=== PATIENT | female | born 1940 | race Caucasian/White ===

== ENCOUNTER 2017-03-26 12:25 | Emergency (ER) | payer MEDICARE, BC ==
[2017-03-26 13:02] VITALS: BP 148/73
--- NOTE | 2017-03-26 13:31 | EDM.PDOC ---
ED HPI GENERAL MEDICAL PROBLEM - General Chief Complaint: Respiratory Problem Stated Complaint: SHORT OF BREATH, PAIN Time Seen by Provider: 03/26/17 13:15 Source of Information: Reports: Patient, Old Records History Limitations: Reports: No Limitations - History of Present Illness INITIAL COMMENTS - FREE TEXT/NARRATIVE: 76 yo female presents from home with SOB. Is diabetic and BS was just over 300 before coming in. No recent cough, fever, or CP. Has had similar episodes of SOB in the past, but not this severe. Now that she is here she is completely back to normal. No recent unilateral calf pain or swelling. Onset: Today Onset Date: 03/26/17 Duration: Minutes:, Resolved Prior to Arrival (Resolved upon arrival) Location: Reports: Generalized Quality: Reports: Other (no pain) Severity: Moderate Improves with: Reports: Other (time) Worsens with: Reports: Other (unknown) Context: Reports: Other (past hx of anxiety) Associated Symptoms: Reports: No Other Symptoms Treatments TREE CUTTER: Reports: Other (see below) (none) Chest Pain Score (Numeric/FACES): 5 - Related Data Allergies Allergy/AdvReac Type Severity Reaction Status Date / Time celecoxib [From Celebrex] Allergy Rash Verified 03/26/17 12:50 metformin HCl Allergy Cannot Verified 03/26/17 12:50 [From Glucophage] Remember paroxetine Allergy Cannot Verified 03/26/17 12:50 Remember prednisone Allergy Cannot Verified 03/26/17 12:50 Remember rofecoxib [From Vioxx] Allergy Rash Verified 03/26/17 12:50 Sulfa (Sulfonamide Allergy Cannot Verified 03/26/17 12:50 Antibiotics) Remember sulfasalazine Allergy Cannot Verified 03/26/17 12:50 [From Azulfidine] Remember codeine AdvReac Itching Verified 03/26/17 12:50 cyclobenzaprine AdvReac Itching Verified 03/26/17 12:50 environmental Allergy Cannot Uncoded 03/26/17 12:50 Remember Home Meds: Home Meds Furosemide [Lasix] 20 mg PO DAILY 08/22/13 [History] Gabapentin [Neurontin] 900 mg PO TID 08/22/13 [History] Multivitamin with Minerals [Multiple Vitamin] 1 tab PO DAILY 08/22/13 [History] Ursodiol [Actigal] 300 mg PO BID 08/22/13 [History] FLUoxetine HCl [Prozac] 60 mg PO DAILY 03/09/14 [History] Insulin Aspart Protam & Aspart [Novolog Mix 70-30 Flexpen Syrn] 23 unit SQ BEDTIME 09/15/15 [History] Insuln Asp Prot/Insulin Aspart [NovoLOG Mix 70-30] 35 unit SQ ACBRK 09/15/15 [ History] Loratadine 10 mg PO DAILY 03/30/16 [History] Memantine HCl [Namenda] 10 mg PO BEDTIME 03/30/16 [History] Pramipexole [Mirapex] 0.5 mg PO BEDTIME 03/30/16 [History] Ranitidine [Zantac] 150 mg PO BID 03/30/16 [History] Rivastigmine [Exelon] 3 mg PO BID 04/27/16 [History] Metoprolol Tartrate [Lopressor] 25 mg PO BID 03/26/17 [History] Ondansetron [Ondansetron ODT] 4 mg SL ASDIRECTED 03/26/17 [History] Warfarin [Coumadin] 2.5 mg PO ASDIRECTED 03/26/17 [History] Warfarin [Coumadin] 5 mg PO ASDIRECTED 03/26/17 [History] atorvaSTATin [Lipitor] 40 mg PO DAILY 03/26/17 [History] Past Medical History HEENT History: Reports: Cataract, Impaired Vision Cardiovascular History: Reports: High Cholesterol, Hypertension, Other (See Below) Other Cardiovascular History: bradycardia Respiratory History: Reports: Sleep Apnea Gastrointestinal History: Reports: Bowel Obstruction, Colon Polyp, Diverticulosis, Hemorrhoids Genitourinary History: Reports: UTI, Recurrent Other OB/BYN History: removal of one ovary and fallopian tube Musculoskeletal History: Reports: Arthritis, Back Pain, Chronic, Fracture, Fibromyalgia, Osteoporosis Neurological History: Reports: Concussion, Neuropathy, Diabetic, TIA, Other ( See Below) Other Neuro History: dementia Psychiatric History: Reports: Anxiety, Dementia, Depression Endocrine/Metabolic History: Reports: Diabetes, Type II, Osteoporosis Hematologic History: Reports: Anemia, Anticoagulation Therapy Dermatologic History: Reports: Psoriasis - Infectious Disease History Infectious Disease History: Reports: Chicken Pox, Measles, Mumps Other Infectious Disease History: unknown - Past Surgical History HEENT Surgical History: Reports: Cataract Surgery Cardiovascular Surgical History: Reports: Pacer GI Surgical History: Reports: Appendectomy, Cholecystectomy, Hernia Repair/Other , Other (See Below) Musculoskeletal Surgical History: Reports: Knee Replacement, Other (See Below) Social & Family History - Tobacco Use Smoking Status *Q: Never Smoker Second Hand Smoke Exposure: No - Caffeine Use Caffeine Use: Reports: Coffee Other Caffeine Use: unknown - Alcohol Use Days Per Week of Alcohol Use: 0 - Recreational Drug Use Recreational Drug Use: No ED ROS GENERAL - Review of Systems Review Of Systems: See Below Constitutional: Reports: No Symptoms HEENT: Reports: No Symptoms Respiratory: Reports: Shortness of Breath Cardiovascular: Reports: No Symptoms Endocrine: Reports: No Symptoms GI/Abdominal: Reports: No Symptoms : Reports: No Symptoms Musculoskeletal: Reports: No Symptoms Skin: Reports: No Symptoms Neurological: Reports: No Symptoms Psychiatric: Reports: Anxiety ED EXAM, GENERAL - Physical Exam Exam: See Below Exam Limited By: No Limitations General Appearance: Alert, WD/WN, No Apparent Distress Eye Exam: Bilateral Eye: Normal Inspection Ears: Normal External Exam, Normal Canal, Hearing Grossly Normal, Normal TMs Ear Exam: Bilateral Ear: Auricle Normal, Canal Normal, TM normal Nose: Normal Inspection, Normal Mucosa, No Blood Throat/Mouth: Normal Inspection, Normal Lips, Normal Oropharynx, Normal Voice, No Airway Compromise Head: Atraumatic, Normocephalic Neck: Normal Inspection, Supple, Non-Tender Respiratory/Chest: No Respiratory Distress, Lungs Clear, Normal Breath Sounds, No Accessory Muscle Use Cardiovascular: Regular Rate, Rhythm, No Edema GI/Abdominal: Normal Bowel Sounds, Soft, Non-Tender, No Distention Back Exam: Normal Inspection Extremities: Normal Inspection, Normal Range of Motion, Non-Tender, No Pedal Edema Neurological: Alert, Oriented, CN II-XII Intact, Normal Cognition, Normal Reflexes, No Motor/Sensory Deficits Psychiatric: Normal Affect, Normal Mood Skin Exam: Warm, Dry, Intact, Normal Color, No Rash Lymphatic: No Adenopathy Course - Vital Signs Text/Narrative:: AccuCheck-250 Last Recorded V/S: Last Vital Signs Temp 36.6 C 03/26/17 12:52 Pulse 60 03/26/17 13:01 Resp 21 H 03/26/17 13:01 BP 148/73 H 03/26/17 13:01 Pulse Ox 95 03/26/17 13:01 - Orders/Labs/Meds Orders: Active Orders 24 hr Category Date Time Status POC Glucose [Blood Glucose Check, Bedside] [RC] ONETIME Care 03/26/17 13:25 Inactive Departure - Departure Time of Disposition: 14:08 Disposition: Home, Self-Care 01 Condition: good Clinical Impression: Anxiety - Discharge Information Forms: ED Department Discharge - My Orders Last 24 Hours: My Active Orders 03/26/17 13:25 POC Glucose [Blood Glucose Check, Bedside] [RC] ONETIME - Assessment/Plan Last 24 Hours: My Active Orders 03/26/17 13:25 POC Glucose [Blood Glucose Check, Bedside] [RC] ONETIME
== END 2017-03-26 14:32 | disposition home or self-care (01) ==
LOC: JP.ED 12:25
DX: F41.9 Anxiety disorder, unspecified (principal); I10 Essential (primary) hypertension; E78.00 Pure hypercholesterolemia, unspecified; E11.40 Type 2 diabetes mellitus with diabetic neuropathy, unspecified; F03.90 Unspecified dementia, unspecified severity, without behavioral disturbance, psychotic disturbance, mood disturbance, and anxiety; F32.9 Major depressive disorder, single episode, unspecified; Z86.73 Personal history of transient ischemic attack (TIA), and cerebral infarction without residual deficits; Z98.49 Cataract extraction status, unspecified eye; Z95.0 Presence of cardiac pacemaker; Z90.49 Acquired absence of other specified parts of digestive tract; Z96.659 Presence of unspecified artificial knee joint; Z98.890 Other specified postprocedural states; Z79.4 Long term (current) use of insulin; Z79.899 Other long term (current) drug therapy; Z88.2 Allergy status to sulfonamides; Z88.5 Allergy status to narcotic agent; Z88.8 Allergy status to other drugs, medicaments and biological substances; Z91.048 Other nonmedicinal substance allergy status
CPT/HCPCS: 82962; 99282; 99285

== ENCOUNTER 2017-10-19 09:37 | Observation (INO) | payer MEDICARE, BC ==
[2017-10-19] MEDS ORDERED: Ondansetron 4 MG/2 ML SDV ONE (09:58)
[2017-10-19] MEDS ORDERED: Propofol 200 MG/20 ML SDV ONE (10:01)
[2017-10-19] MEDS ORDERED: Succinylcholine 200 MG/10 ML MDV ONE (10:01)
--- NOTE | 2017-10-19 10:07 | CT ---
Max Facial Sinus wo Cont Total DLP 379 mGycm. INDICATION: fall, trauma COMPARISON: None. FINDINGS: Hematoma within the scalp overlying the midline left frontal bone. No acute facial fracture . Temporomandibular joints are normally located. No significant paranasal sinus disease. Exam otherwi se negative. IMPRESSION: No acute facial fracture. Soft tissue hematoma.
--- NOTE | 2017-10-19 10:15 | CT ---
Head wo Cont INDICATION: fall, trauma Total DLP 1071. COMPARISON: None. FINDINGS: No acute intracranial hemorrhage, mass, or edema. Generalized cerebral and cerebellar volum e loss. Patchy low attenuation in the periventricular and subcortical deep white matter is nonspecifi c, but most compatible with chronic small-vessel ischemic changes. Chronic encephalomalacia parasagit aneudy right occipital lobe. Chronic lacunar infarcts bilateral basal ganglia. Remainder unremarkable. IMPRESSION: No acute intracranial abnormality.
--- NOTE | 2017-10-19 10:17 | CT ---
Cervical Spine wo Cont Total DLP 1071. INDICATION: fall, trauma COMPARISON: None FINDINGS: No acute fracture or malalignment. Multilevel degenerative changes including degenerative d isc disease and uncovertebral and facet hypertrophy with associated neural foraminal narrowing. Soft tissues are negative. Remainder unremarkable. IMPRESSION: No acute fracture or malalignment.
[2017-10-19] MEDS ORDERED: Ondansetron 4 MG/2 ML SDV IVPUSH ONE (10:20)
--- NOTE | 2017-10-19 10:29 | EDM.PDOC ---
ED HPI GENERAL MEDICAL PROBLEM - General Chief Complaint: Head Injury Stated Complaint: [facility]IA [facility] Time Seen by Provider: 10/19/17 10:19 Source of Information: Reports: Patient, RN Notes Reviewed (Name do) History Limitations: Reports: Altered Mental Status - History of Present Illness INITIAL COMMENTS - FREE TEXT/NARRATIVE: 77-year-old female presents emergency department today via EMS services, [facility] was in both in the field for head injury. Minimal history can be obtained from the patient but she does communicate and answers questions appropriately story from EMs states patient slipped and fell today at home landing on the corner of a concrete fireplace hitting the right side of her head , she is actively vomiting upon arrival Headache Pain Score (Numeric/FACES): 5 - Related Data Allergies Allergy/AdvReac Type Severity Reaction Status Date / Time celecoxib [From Celebrex] Allergy Rash Verified 10/19/17 10:30 metformin HCl Allergy Cannot Verified 10/19/17 10:30 [From Glucophage] Remember paroxetine Allergy Cannot Verified 10/19/17 10:30 Remember prednisone Allergy Cannot Verified 10/19/17 10:30 Remember rofecoxib [From Vioxx] Allergy Rash Verified 10/19/17 10:30 Sulfa (Sulfonamide Allergy Cannot Verified 10/19/17 10:30 Antibiotics) Remember sulfasalazine Allergy Cannot Verified 10/19/17 10:30 [From Azulfidine] Remember codeine AdvReac Itching Verified 10/19/17 10:30 cyclobenzaprine AdvReac Itching Verified 10/19/17 10:30 environmental Allergy Cannot Uncoded 10/19/17 10:30 Remember Home Meds: Home Meds Furosemide [Lasix] 20 mg PO DAILY 08/22/13 [History] Gabapentin [Neurontin] 900 mg PO TID 08/22/13 [History] Multivitamin with Minerals [Multiple Vitamin] 1 tab PO DAILY 08/22/13 [History] Ursodiol [Actigal] 300 mg PO BID 08/22/13 [History] FLUoxetine HCl [Prozac] 60 mg PO DAILY 03/09/14 [History] Insulin Aspart Protam & Aspart [Novolog Mix 70-30 Flexpen Syrn] 23 unit SQ BEDTIME 09/15/15 [History] Insuln Asp Prot/Insulin Aspart [NovoLOG Mix 70-30] 35 unit SQ ACBRK 09/15/15 [ History] Loratadine 10 mg PO DAILY 03/30/16 [History] Memantine HCl [Namenda] 10 mg PO BEDTIME 03/30/16 [History] Pramipexole [Mirapex] 0.5 mg PO BEDTIME 03/30/16 [History] Ranitidine [Zantac] 150 mg PO BID 03/30/16 [History] Rivastigmine [Exelon] 3 mg PO BID 04/27/16 [History] Metoprolol Tartrate [Lopressor] 25 mg PO BID 03/26/17 [History] Ondansetron [Ondansetron ODT] 4 mg SL ASDIRECTED 03/26/17 [History] Warfarin [Coumadin] 2.5 mg PO ASDIRECTED 03/26/17 [History] Warfarin [Coumadin] 5 mg PO ASDIRECTED 03/26/17 [History] atorvaSTATin [Lipitor] 40 mg PO DAILY 03/26/17 [History] Past Medical History HEENT History: Reports: Cataract, Impaired Vision Cardiovascular History: Reports: High Cholesterol, Hypertension, Other (See Below) Other Cardiovascular History: bradycardia Respiratory History: Reports: Sleep Apnea Gastrointestinal History: Reports: Bowel Obstruction, Colon Polyp, Diverticulosis, Hemorrhoids Genitourinary History: Reports: UTI, Recurrent Other OB/BYN History: removal of one ovary and fallopian tube Musculoskeletal History: Reports: Arthritis, Back Pain, Chronic, Fracture, Fibromyalgia, Osteoporosis Neurological History: Reports: Concussion, Neuropathy, Diabetic, TIA, Other ( See Below) Other Neuro History: dementia Psychiatric History: Reports: Anxiety, Dementia, Depression Endocrine/Metabolic History: Reports: Diabetes, Type II, Osteoporosis Hematologic History: Reports: Anemia, Anticoagulation Therapy Dermatologic History: Reports: Psoriasis - Infectious Disease History Infectious Disease History: Reports: Other (See Below) Other Infectious Disease History: unknown - Past Surgical History HEENT Surgical History: Reports: Cataract Surgery Cardiovascular Surgical History: Reports: Pacer GI Surgical History: Reports: Appendectomy, Cholecystectomy, Hernia Repair/Other , Other (See Below) Musculoskeletal Surgical History: Reports: Knee Replacement, Other (See Below) Social & Family History - Tobacco Use Smoking Status *Q: Never Smoker Second Hand Smoke Exposure: No - Caffeine Use Caffeine Use: Reports: Coffee Other Caffeine Use: unknown - Alcohol Use Days Per Week of Alcohol Use: 0 - Recreational Drug Use Recreational Drug Use: No ED ROS GENERAL - Review of Systems Review Of Systems: Unable To Obtain ED EXAM, HEAD INJURY - Physical Exam Exam: See Below Text/Narrative:: Primary survey GCS of 14, airways open patent clear lungs are clear to auscultation bilaterally and cardiovascular demonstrates regular rate and rhythm S1-S2 Secondary survey General: Elderly female actively vomiting, GCS of 14, mild distress HEENT: head is large hematomas appreciated over the left eye with closure smaller hematomas over the right eye normocephalic, eyes pupils equal round reactive to light on the right, sclera clear no conjunctivitis appreciated on the right. Ears tympanic membranes clear and pend[place] landmarks and light reflex are present bilaterally canals are clear. Nose no septal deviation, nares are clear, no blood present. Mouth mucosa is moist and pink no erythema or exudate noted in soft palate, tongue is midline uvula is midline, dentures in place. Neck: Supple no thyromegaly no tracheal deviation. Nodes: Cervical nodes subclavicular nodes nontender no palpable lymphadenopathy noted. Lungs: clear to auscultation bilaterally with symmetrical respirations, no adventitious noise appreciated. CV: Regular rate and rhythm S1 and S2 appreciated no murmurs rubs or gallops noted. Abdomen: Soft, nontender, no palpable masses or organomegaly appreciated, no distention no guarding bowel sounds are present,. Neuro: Cranial nerves II through XII grossly intact except for examination of the left eye which is closed due to edema Skin: Warm and dry, intact Extremities: No lower extremity edema appreciated, Course - Vital Signs Last Recorded V/S: Last Vital Signs Temp 95.9 F 10/19/17 09:44 Pulse 63 10/19/17 10:56 Resp 11 L 10/19/17 10:56 BP 190/98 H 10/19/17 10:56 Pulse Ox 94 L 10/19/17 10:56 - Orders/Labs/Meds Orders: Active Orders 24 hr Category Date Time Status INR,PT,PROTHROMBIN TIME [COAG] Routine Lab 10/19/17 12:22 Ordered UA W/MICROSCOPIC [URIN] Urgent Lab 10/19/17 10:21 Uncollected Labs: Laboratory Tests 10/19/17 10/19/17 Range/Units 10:35 10:35 WBC 7.8 (4.5-11.0) K/uL RBC 4.69 (3.30-5.50) M/uL Hgb 15.1 H D (12.0-15.0) g/dL Hct 43.9 (36.0-48.0) % MCV 94 (80-98) fL MCH 32 H (27-31) pg MCHC 34 (32-36) % Plt Count 179 (150-400) K/uL Neut % (Auto) 74 H (36-66) % Lymph % (Auto) 14 L (24-44) % [place] % (Auto) 9 H (2-6) % Eos % (Auto) 1 L (2-4) % Baso % (Auto) 1 (0-1) % Sodium 137 L (140-148) mmol/L Potassium 3.6 (3.6-5.2) mmol/L Chloride 102 (100-108) mmol/L Carbon Dioxide 27 (21-32) mmol/L Anion Gap 11.6 (5.0-14.0) mmol/L BUN 15 (7-18) mg/dL Creatinine 1.0 (0.6-1.0) mg/dL Est Cr Clr Drug Dosing TNP Estimated GFR (MDRD) 54 L (>60) Glucose 229 H (74-106) mg/dL Calcium 9.2 (8.5-10.1) mg/dL Total Bilirubin 0.6 D (0.2-1.0) mg/dL AST 34 (15-37) U/L ALT 27 (12-78) U/L Alkaline Phosphatase 132 H (46-116) U/L Total Protein 7.2 (6.4-8.2) g/dL Albumin 2.9 L (3.4-5.0) g/dL Globulin 4.3 H (2.3-3.5) g/dL Albumin/Globulin Ratio 0.7 L (1.2-2.2) Meds: Medications Discontinued Medications Generic Name Dose Route Start Last Admin Trade Name Freq PRN Reason Stop Dose Admin Hydromorphone HCl 0.5 mg 10/19/17 10:37 10/19/17 10:49 Dilaudid IVPUSH 10/19/17 10:38 0.5 mg ONETIME ONE Administration Ondansetron HCl Confirm 10/19/17 09:58 Zofran Administered 10/19/17 09:59 Dose 4 mg .ROUTE .STK-MED ONE Ondansetron HCl 4 mg 10/19/17 10:20 10/19/17 10:47 Zofran IVPUSH 10/19/17 10:21 4 mg ONETIME ONE Administration Propofol Confirm 10/19/17 10:01 Diprivan 20 Ml Administered 10/19/17 10:02 Dose 200 mg .ROUTE .STK-MED ONE Succinylcholine Chloride Confirm 10/19/17 10:01 Quelicin Administered 10/19/17 10:02 Dose 200 mg .ROUTE .STK-MED ONE Departure - Departure Time of Disposition: 12:58 Disposition: Admitted As Inpatient 65 Condition: Fair Clinical Impression: Head injury due to trauma Qualifiers: Encounter type: initial encounter Qualified Code(s): S09.90XA - Unspecified injury of head, initial encounter - Discharge Information - My Orders Last 24 Hours: My Active Orders 10/19/17 10:21 UA W/MICROSCOPIC [URIN] Urgent - Assessment/Plan Last 24 Hours: My Active Orders 10/19/17 10:21 UA W/MICROSCOPIC [URIN] Urgent Plan: Assessment Acuity = acute Site and laterality = head injury with contusion above the left eye and hematoma Etiology = secondary to a fall Manifestations = none Location of injury = Home Lab values = CBC, albumin low at 2.[address] scan head maxillofacial bones and neck show no acute process Plan Called discussed case with hospitalist head concierge he agreed to come and evaluate the patient in the emergency department for further evaluation Patient was in agreement with the plan all questions were answered, they were instructed to return to the emergency department or call for worsening symptoms. This note was dictated using [employer] voice recognition software please call with any questions.
[2017-10-19] MEDS ORDERED: HYDROmorphone 0.5 MG/0.5 ML Syringe IVPUSH ONE (10:37)
--- NOTE | 2017-10-19 12:37 | PCM.HP ---
H&P History of Present Illness - General Date of Service: 10/19/17 Admit Problem/Dx: Admission Diagnosis/Problem Admission Diagnosis/Problem Head injury without fracture of skull Source of Information: Patient, Family, Provider History Limitations: Reports: Altered Mental Status - History of Present Illness Initial Comments - Free Text/Narative: Rosa Elena presented to the emergency room by ambulance after a fall at home where she struck her head. She has dementia as well as additional short-term memory loss from the accident and does not recall what happened. She does report that she fell but has no idea if she tripped or collapsed her how she had the fall. She has no memory of the ambulance ride here. She has currently report a mild frontal headache which is achy. She hasn't had anything for the pain as of yet. No obvious trigger to make it worse. As far she can recall things have been normal prior to the accident this morning. Family was present has not noticed much out of the ordinary recently. They note that her confusion waxes and wanes with her dementia. Workup in the emergency room included a CT of the head, neck and sinuses. There is no evidence for intracranial bleed or fracture. Scalp hematoma was noted but there was no active bleeding. Patient had emesis upon arrival to the emergency room. [facility] care had actually been summoned at the scene because of the head injury and current use of warfarin but was canceled once no acute findings were found and the patient awoke up. She will be admitted for observation. Headache Pain Score (Numeric/FACES): 5 - Related Data Allergies/Adverse Reactions: Allergies Allergy/AdvReac Type Severity Reaction Status Date / Time celecoxib [From Celebrex] Allergy Rash Verified 10/19/17 10:30 metformin HCl Allergy Cannot Verified 10/19/17 10:30 [From Glucophage] Remember paroxetine Allergy Cannot Verified 10/19/17 10:30 Remember prednisone Allergy Cannot Verified 10/19/17 10:30 Remember rofecoxib [From Vioxx] Allergy Rash Verified 10/19/17 10:30 Sulfa (Sulfonamide Allergy Cannot Verified 10/19/17 10:30 Antibiotics) Remember sulfasalazine Allergy Cannot Verified 10/19/17 10:30 [From Azulfidine] Remember codeine AdvReac Itching Verified 10/19/17 10:30 cyclobenzaprine AdvReac Itching Verified 10/19/17 10:30 environmental Allergy Cannot Uncoded 10/19/17 10:30 Remember Home Medications: Home Meds Furosemide [Lasix] 20 mg PO DAILY 08/22/13 [History] Multivitamin with Minerals [Multiple Vitamin] 1 tab PO DAILY 08/22/13 [History] Pramipexole [Mirapex] 0.5 mg PO BEDTIME 03/30/16 [History] Ranitidine [Zantac] 150 mg PO BID 03/30/16 [History] Metoprolol Tartrate [Lopressor] 25 mg PO BID 03/26/17 [History] Warfarin [Coumadin] 2.5 mg PO ASDIRECTED 03/26/17 [History] Warfarin [Coumadin] 5 mg PO ASDIRECTED 03/26/17 [History] atorvaSTATin [Lipitor] 40 mg PO BEDTIME 03/26/17 [History] FLUoxetine HCl [Fluoxetine HCl] 60 mg PO DAILY 10/19/17 [History] Gabapentin [Neurontin] 300 mg PO TID 10/19/17 [History] Gabapentin [Neurontin] 600 mg PO TID 10/19/17 [History] Insulin NPH Hum/Reg Insulin Hm [Novolin 70-30 100 Unit/ml Vial] 23 units SQ QPM 10/19/17 [History] Insulin NPH Hum/Reg Insulin Hm [Novolin 70-30 100 Unit/ml Vial] 35 units SQ ACBREAKFAST 10/19/17 [History] Meclizine [Antivert] 25 mg PO TID PRN 10/19/17 [History] Memantine HCl 10 mg PO DAILY 10/19/17 [History] Ursodiol [Ursodiol] 300 mg PO BID 10/19/17 [History] Past Medical History HEENT History: Reports: Cataract, Impaired Vision Cardiovascular History: Reports: High Cholesterol, Hypertension, Other (See Below) Other Cardiovascular History: bradycardia Respiratory History: Reports: Sleep Apnea Gastrointestinal History: Reports: Bowel Obstruction, Colon Polyp, Diverticulosis, Hemorrhoids Genitourinary History: Reports: UTI, Recurrent Other OB/BYN History: removal of one ovary and fallopian tube Musculoskeletal History: Reports: Arthritis, Back Pain, Chronic, Fracture, Fibromyalgia, Osteoporosis Neurological History: Reports: Concussion, Neuropathy, Diabetic, TIA, Other ( See Below) Other Neuro History: dementia Psychiatric History: Reports: Anxiety, Dementia, Depression Endocrine/Metabolic History: Reports: Diabetes, Type II, Osteoporosis Hematologic History: Reports: Anemia, Anticoagulation Therapy Dermatologic History: Reports: Psoriasis - Infectious Disease History Infectious Disease History: Reports: Other (See Below) Other Infectious Disease History: unknown - Past Surgical History HEENT Surgical History: Reports: Cataract Surgery Cardiovascular Surgical History: Reports: Pacer GI Surgical History: Reports: Appendectomy, Cholecystectomy, Hernia Repair/Other , Other (See Below) Musculoskeletal Surgical History: Reports: Knee Replacement, Other (See Below) Social & Family History - Family History Cardiac: Denies: CAD - Tobacco Use Smoking Status *Q: Never Smoker Second Hand Smoke Exposure: No - Caffeine Use Caffeine Use: Reports: Coffee Other Caffeine Use: unknown - Alcohol Use Days Per Week of Alcohol Use: 0 - Recreational Drug Use Recreational Drug Use: No H&P Review of Systems - Review of Systems: Review Of Systems: Unable To Obtain (pt confused on top of baseline dementia) Exam - Exam Exam: See Below - Vital Signs Vital Signs: Last Vital Signs Temp 35.5 C 10/19/17 09:44 Pulse 63 10/19/17 10:56 Resp 11 L 10/19/17 10:56 BP 190/98 H 10/19/17 10:56 Pulse Ox 94 L 10/19/17 10:56 Weight: 77.56 kg - Exam Quality Assessment: No: Supplemental Oxygen General: Alert, Cooperative. No: Oriented, Mild Distress HEENT: Conjunctiva Clear (on the right), Mucosa Moist & [place], Other (ecchymoses around left eye and bridge of the nose ) Neck: Supple, Trachea Midline. No: Lymphadenopathy Lungs: Clear to Auscultation, Normal Respiratory Effort Cardiovascular: Regular Rate, Regular Rhythm. No: Systolic Murmur GI/Abdominal Exam: Normal Bowel Sounds, Soft, Non-Tender, No Distention Back Exam: Normal Inspection, Full Range of Motion Extremities: No Pedal Edema. No: Increased Warmth Skin: Warm, Dry Neuro Extensive - Mental Status: Alert, Disorientation to Place, Memory Loss- Recent Events, Nl Response to Commands. No: Oriented x3 Neuro Extensive - Motor, Sensory, Reflexes: CN II-XII Intact. No: Dysarthria, Abnormal Motor Psychiatric: Alert, Normal Affect - Patient Data Lab Results Last 24 hrs: Laboratory Results - last 24 hr 10/19/17 10/19/17 Range/Units 10:35 10:35 WBC 7.8 (4.5-11.0) K/uL RBC 4.69 (3.30-5.50) M/uL Hgb 15.1 H D (12.0-15.0) g/dL Hct 43.9 (36.0-48.0) % MCV 94 (80-98) fL MCH 32 H (27-31) pg MCHC 34 (32-36) % Plt Count 179 (150-400) K/uL Neut % (Auto) 74 H (36-66) % Lymph % (Auto) 14 L (24-44) % Walker % (Auto) 9 H (2-6) % Eos % (Auto) 1 L (2-4) % Baso % (Auto) 1 (0-1) % Sodium 137 L (140-148) mmol/L Potassium 3.6 (3.6-5.2) mmol/L Chloride 102 (100-108) mmol/L Carbon Dioxide 27 (21-32) mmol/L Anion Gap 11.6 (5.0-14.0) mmol/L BUN 15 (7-18) mg/dL Creatinine 1.0 (0.6-1.0) mg/dL Est Cr Clr Drug Dosing TNP Estimated GFR (MDRD) 54 L (>60) Glucose 229 H (74-106) mg/dL Calcium 9.2 (8.5-10.1) mg/dL Total Bilirubin 0.6 D (0.2-1.0) mg/dL AST 34 (15-37) U/L ALT 27 (12-78) U/L Alkaline Phosphatase 132 H (46-116) U/L Total Protein 7.2 (6.4-8.2) g/dL Albumin 2.9 L (3.4-5.0) g/dL Globulin 4.3 H (2.3-3.5) g/dL Albumin/Globulin Ratio 0.7 L (1.2-2.2) Result Diagrams: 10/19/17 10:35 10/19/17 10:35 Imaging Impressions Last 24 hrs: Head CT - images personally reviewed - no evidence for acute bleed or skull fracture. There is evidence for old cerebral infarctions CT spine of the neck - no evidence for fracture Facial bone imaging - no evidence for fracture *Q Meaningful Use (ADM) - VTE *Q VTE Criteria *Q: VTE Pharmacological Contraindications *Q: Risk of Bleeding - VTE Risk Assess *Q Each Risk Factor Represents 1 Point: Obesity ( BMI > 25 kg/m2) Total Score 1 Point Risk Factors: 1 Each Risk Factor Represents 2 Points: None Total Score 2 Point Risk Factors: 0 Each Risk Factor Represents 3 Points: Age 75 Years or Greater Total Score 3 Point Risk Factors: 3 Each Risk Factor Represents 5 Points: None Total Score 5 Point Risk Factors: 0 Venous Thromboembolism Risk Factor Score *Q: 4 - Stroke *Q Stroke Criteria *Q: - AMI *Q AMI Criteria *Q: - Problem List (1) Head injury due to trauma SNOMED Code(s): 57779749 ICD Code: S09.90XA - UNSPECIFIED INJURY OF HEAD, INITIAL ENCOUNTER Status: Acute Current Visit: Yes Qualifiers: Encounter type: initial encounter Qualified Code(s): S09.90XA - Unspecified injury of head, initial encounter (2) Cerebrovascular disease SNOMED Code(s): 68307623 ICD Code: I67.9 - CEREBROVASCULAR DISEASE, UNSPECIFIED Status: Chronic Current Visit: Yes (3) Dementia SNOMED Code(s): 59819870 ICD Code: F03.90 - UNSPECIFIED DEMENTIA WITHOUT BEHAVIORAL DISTURBANCE Status: Chronic Current Visit: No (4) Diabetes mellitus type 2 SNOMED Code(s): 82806610 ICD Code: E11.9 - TYPE 2 DIABETES MELLITUS WITHOUT COMPLICATIONS Status: Chronic Current Visit: No Problem List Initiated/Reviewed/Updated: Yes Orders Last 24hrs: Active Orders 24 hr Category Date Time Status Patient Status Manage Transfer [TRANSFER] Routine ADT 10/19/17 12:23 Ordered INR,PT,PROTHROMBIN TIME [COAG] Routine Lab 10/19/17 12:22 Ordered UA W/MICROSCOPIC [URIN] Urgent Lab 10/19/17 10:21 Uncollected Resuscitation Status Routine Resus Stat 10/19/17 12:26 Ordered Assessment/Plan Comment:: ASSESSMENT AND PLAN - Fall with head trauma - patient has concussive injury because of the fall as well as a large left hematoma and small right eye hematoma. Seems to be coming around. No obvious focal deficits on neurological examination. Head CT shows old changes but no acute findings such as bleed or stroke. -Pain control with acetaminophen -Neuro checks -UA to rule out infection -Hold warfarin today Dementia - unclear if vascular or Alzheimer's or both. No strong history of behavioral issues though confusion waxes and wanes. -Continue home medications -Melatonin at bedtime Cerebrovascular disease - history of previous infarctions. No obvious deficits other than possibly some memory issues as discussed above. Insulin-dependent diabetes mellitus - planning to continue usual home medications. Maintenance issues - - DVT prophylaxis - warfarin - GI prophylaxis - PPI - Nutrition - diabetic diet - Diaz catheter - not indicated CODE STATUS - DNR/DNI Admission justification - patient will be referred observation status for neuro checks and overnight monitoring Disposition - anticipate discharge to home tomorrow, possibly with home care Primary care physician - Dr. Byron Guevara M.D.
[2017-10-19] MEDS ORDERED: Ondansetron 4 MG Tab.DIS PO PRN (14:47)
[2017-10-19] MEDS ORDERED: GABAPENTIN 900 MG PO SCH (14:47)
[2017-10-19] MEDS ORDERED: cefTRIAXone 1 GM in Sodium Chloride 0.9% 50 ML IV SCH (15:30)
[2017-10-19] MEDS ORDERED: [UNRECOGNIZED DRUG - OTHER] SQ SCH (17:00)
[2017-10-19] MEDS ORDERED: ASPART SQ SCH (17:00)
[2017-10-19] MEDS ORDERED: INSULIN ISOPHANE SUBCUT SCH (17:00)
[2017-10-19] MEDS ORDERED: INSULIN REGULAR SUBCUT SCH (17:00)
[2017-10-19] MEDS ORDERED: INSULIN ASPART PROTAM SQ SCH (17:00)
[2017-10-19] MEDS: Acetaminophen 325 MG Tab PO PRN ×2 (17:31→21:54)
[2017-10-19] MEDS ORDERED: Insulin NPH/Insulin Regular,Human 70-30 100 Units/ML 10 ML Vial SUBCUT SCH (17:34)
[2017-10-19] MEDS: GABAPENTIN 600 MG PO SCH (20:25)
[2017-10-19] MEDS: Metoprolol Tartrate 25 MG Tab (PTOM) PO SCH (20:26)
[2017-10-19] MEDS: URSODIOL 300 MG PO SCH (20:26)
[2017-10-19] MEDS: Gabapentin 300 MG Cap (PTOM) PO SCH (20:26)
[2017-10-19] MEDS: Ranitidine 150 MG Tab (PTOM) PO SCH (20:28)
[2017-10-19] MEDS ORDERED: MEMANTINE HCL 10 MG PO SCH (21:00)
[2017-10-19] MEDS ORDERED: RIVASTIGMINE 3 MG PO SCH (21:00)
[2017-10-19] MEDS ORDERED: Ranitidine 150 MG Tab (PTOM) PO SCH (21:00)
[2017-10-19] MEDS ORDERED: MEMANTINE 10 MG PO SCH (21:00)
[2017-10-19] MEDS ORDERED: URSODIOL 300 MG PO SCH (21:00)
[2017-10-19] MEDS ORDERED: Non-Formulary Medication 1 Each (Metoprolol Tartrate [Lopressor] 25 MG) PO SCH (21:00)
[2017-10-19] MEDS ORDERED: ATORVASTATIN 40MG (PTOM) PO SCH (21:00)
[2017-10-19] MEDS ORDERED: Non-Formulary Medication 1 Each (Ranitidine [Zantac] 150 MG) PO SCH (21:00)
[2017-10-19] MEDS ORDERED: PRAMIPEXOLE 0.5 MG PO SCH ×2 (21:00)
[2017-10-20] MEDS ORDERED: INSULIN REGULAR SUBCUT SCH ×2 (07:30→09:00)
[2017-10-20] MEDS ORDERED: INSULN ASP PROT SQ SCH (07:30)
[2017-10-20] MEDS ORDERED: Insulin NPH/Insulin Regular,Human 70-30 100 Units/ML 10 ML Vial SUBCUT SCH (07:30)
[2017-10-20] MEDS ORDERED: [UNRECOGNIZED DRUG - OTHER] SQ SCH (07:30)
[2017-10-20] MEDS ORDERED: INSULIN ISOPHANE SUBCUT SCH ×2 (07:30→09:00)
[2017-10-20] MEDS ORDERED: INSULIN ASPART SQ SCH (07:30)
[2017-10-20] MEDS: Gabapentin 300 MG Cap (PTOM) PO SCH (08:11)
[2017-10-20] MEDS: URSODIOL 300 MG PO SCH (08:11)
[2017-10-20] MEDS: GABAPENTIN 600 MG PO SCH (08:11)
[2017-10-20] MEDS ORDERED: Non-Formulary Medication 1 Each (Loratadine [Loratadine] 10 MG) PO SCH (09:00)
[2017-10-20] MEDS ORDERED: FLUOXETINE HCL 60 MG PO SCH (09:00)
[2017-10-20] MEDS ORDERED: Non-Formulary Medication 1 Each (Atorvastatin [Lipitor] 40 MG) PO SCH (09:00)
[2017-10-20] MEDS ORDERED: Non-Formulary Medication 1 Each (Multivitamin With Minerals [Multiple Vitamin] 1 TAB) PO SCH (09:00)
[2017-10-20] MEDS ORDERED: Non-Formulary Medication 1 Each (Furosemide [Lasix] 20 MG) PO SCH (09:00)
[2017-10-20] MEDS ORDERED: Loratadine 10 MG Tab PO SCH (09:00)
[2017-10-20] MEDS ORDERED: Multivitamins with Iron/Calcium/Folic Acid/Minerals Tab PO SCH (09:00)
--- NOTE | 2017-10-20 11:39 | PCM.DCSUM1 ---
Discharge Summary - Hospital Course Brief History: 77-year-old female with insulin-dependent diabetes mellitus, cerebrovascular disease and dementia who presented after a fall with facial trauma. She was admitted for observation. - Discharge Data Discharge Date: 10/20/17 Discharge Disposition: Home, W Home Health Agency 06 Condition: Fair - Discharge Diagnosis/Problem(s) (1) Head injury due to trauma SNOMED Code(s): 49969948 ICD Code: S09.90XA - UNSPECIFIED INJURY OF HEAD, INITIAL ENCOUNTER Status: Acute Qualifiers: Encounter type: initial encounter Qualified Code(s): S09.90XA - Unspecified injury of head, initial encounter (2) Cerebrovascular disease SNOMED Code(s): 30622590 ICD Code: I67.9 - CEREBROVASCULAR DISEASE, UNSPECIFIED Status: Chronic (3) Dementia SNOMED Code(s): 51417301 ICD Code: F03.90 - UNSPECIFIED DEMENTIA WITHOUT BEHAVIORAL DISTURBANCE Status: Chronic (4) Diabetes mellitus type 2 SNOMED Code(s): 42535622 ICD Code: E11.9 - TYPE 2 DIABETES MELLITUS WITHOUT COMPLICATIONS Status: Chronic - Patient Summary/Data Consults: Consultations 10/20/17 08:38 PT Evaluation and Treatment [CONS] Routine Please Evaluate and Treat. PT Reason for Consult: Ambulation This query below is only for informational purposes and is not editable. Admission Diagnosis/Problem: Head injury without fracture of skull Hospital Course: Rosa Elena presented to the emergency room after a fall with facial trauma. Initially she was very confused compared to baseline and had some nausea and vomiting. Workup in the emergency room was unremarkable including head CT, cervical spine CT and facial CT. She was admitted for observation. Overnight there were no significant difficulties. She does have a large ecchymosis involving her for head, the bridge of her nose and both eyes but seems to have normal vision. She does not have a headache and has tolerated her diet. No nausea or vomiting. Mental status actually seems a little better than recent baseline today. I believe she is safe for discharge at this point. There is concern from the family about safety at home for both the patient and her . They have been trying to convince them to go to assisted living for some time but the is very resistant. At this point I don't believe that things are any worse than they have been over the past couple of years. They are on a waiting list at an assisted living facility. She is interested in having some home care to provide nursing and physical therapy services. Family will try to help out as much as they can until the patient goes to the assisted living facility. During the hospital stay we did also collect a urine sample which was suggestive of infection and the culture is growing a gram-negative mikal but identification is pending at this time. I did send her home with cephalexin and will contact her tomorrow if the culture shows a bacteria resistant to this antibiotic. - Patient Instructions Diet: Diabetic Diet Activity: As Tolerated Driving: Do Not Drive Showering/Bathing: May Shower Notify Provider of: Fever, Increased Pain, Nausea and/or Vomiting Other/Special Instructions: 1. You were in the hospital for observation after a fall with facial trauma. There was no evidence for fracture or bleeding inside your head. I recommend that she use acetaminophen if you have any discomfort or headache. The bruising should slowly improve over the course of the next couple of weeks. 2. During the hospital stay we discovered you have a bladder infection. I have sent a prescription for cephalexin 500 mg capsules. You should take one capsule twice daily for 5 doses. Your first dose is due tonight. 3. I have placed a referral to home health care to help ease the transition from the hospital to home. They will provide nursing and physical therapy services. 4. Please continue your home medications as previously prescribed. 5. Seek medical attention if you develop fever greater than 101, you develop headache or difficulty with vision or if you have persistent vomiting. - Discharge Plan Prescriptions/Med Rec: Cephalexin 500 mg PO BID #5 capsule Home Medications: Home Meds Furosemide [Lasix] 20 mg PO DAILY 08/22/13 [History] Multivitamin with Minerals [Multiple Vitamin] 1 tab PO DAILY 08/22/13 [History] Pramipexole [Mirapex] 0.5 mg PO BEDTIME 03/30/16 [History] Ranitidine [Zantac] 150 mg PO BID 03/30/16 [History] Metoprolol Tartrate [Lopressor] 25 mg PO BID 03/26/17 [History] Warfarin [Coumadin] 2.5 mg PO ASDIRECTED 03/26/17 [History] Warfarin [Coumadin] 5 mg PO ASDIRECTED 03/26/17 [History] atorvaSTATin [Lipitor] 40 mg PO BEDTIME 03/26/17 [History] FLUoxetine HCl [Fluoxetine HCl] 60 mg PO DAILY 10/19/17 [History] Gabapentin [Neurontin] 300 mg PO TID 10/19/17 [History] Gabapentin [Neurontin] 600 mg PO TID 10/19/17 [History] Insulin NPH Hum/Reg Insulin Hm [Novolin 70-30 100 Unit/ml Vial] 10 units SQ QPM 10/19/17 [History] Insulin NPH Hum/Reg Insulin Hm [Novolin 70-30 100 Unit/ml Vial] 23 units SQ ACBREAKFAST 10/19/17 [History] Meclizine [Antivert] 25 mg PO TID PRN 10/19/17 [History] Memantine HCl 10 mg PO DAILY 10/19/17 [History] Ursodiol 300 mg PO BID 10/19/17 [History] Cephalexin 500 mg PO BID #5 capsule 10/20/17 [Rx] Patient Handouts: Urinary Tract Infection, Adult, [id number], Cephalexin tablets or capsules Referrals: Riley Millan MD [Physician] - (1-2 weeks follow-up hospital stay for fall with head trauma and urinary tract infection) - Discharge Summary/Plan Comment DC Time >30 min.: Yes (40 - setting up home care) - Patient Data Vitals - Most Recent: Last Vital Signs Temp 36.7 C 10/20/17 07:41 Pulse 62 10/20/17 07:41 Resp 18 10/20/17 07:41 BP 110/50 L 10/20/17 07:41 Pulse Ox 95 10/20/17 07:41 Weight - Most Recent: 77.56 kg I&O - Last 24 hours: Intake & Output 10/19/17 10/20/17 10/20/17 22:59 06:59 14:59 Intake Total 290 350 Output Total 100 150 Balance 190 200 Lab Results - Last 24 hrs: Laboratory Results - last 24 hr 10/19/17 Range/Units 14:24 Urine Color Yellow Urine Appearance Cloudy Urine pH 6.5 (4.5-8.0) Ur Specific [place] 1.015 (1.008-1.030) Urine Protein Negative (NEGATIVE) mg/dL Urine Glucose (UA) 1000 H (NEGATIVE) mg/dL Urine Ketones 15 H (NEGATIVE) mg/dL Urine Occult Blood Negative (NEGATIVE) Urine Nitrite Negative (NEGATIVE) Urine Bilirubin Negative (NEGATIVE) Urine Urobilinogen Normal (NORMAL) mg/dL Ur Leukocyte Esterase Large (NEGATIVE) Urine RBC 0-5 (0-5) Urine WBC 40-50 H (0-5) Ur Epithelial Cells Few Amorphous Sediment Not seen Urine Bacteria Many Urine Mucus Not seen VIKTOR Results - Last 24 hrs: Microbiology 10/19/17 14:30 Urine Culture - Preliminary Urine, Clean Catch Med Orders - Current: Current Medications Acetaminophen (Tylenol) 650 mg PO Q4H PRN PRN Reason: Pain (Mild 1-3)/fever Last Admin: 10/19/17 21:54 Dose: 650 mg Fluoxetine HCl (Prozac) 60 mg PO Q24H [facility] Furosemide (Lasix) 20 mg PO Q24H [place] Gabapentin (Neurontin) 300 mg PO TID [facility] Last Admin: 10/20/17 08:11 Dose: 300 mg Ceftriaxone Sodium 1 gm/ (Sodium Chloride) 50 mls @ 100 mls/hr IV Q24H [facility] Last Admin: 10/19/17 15:06 Dose: 100 mls/hr Insulin Human Isoph/Insulin Regular (Novolin 70-30) 10 unit SUBCUT QPM [facility] Insulin Human Isoph/Insulin Regular (Novolin 70-30) 23 unit SUBCUT ACBREAKFAST [facility] Last Admin: 10/20/17 10:47 Dose: 23 units Loratadine (Claritin) 10 mg PO DAILY [facility] Last Admin: 10/20/17 08:10 Dose: 10 mg Memantine (Namenda) 10 mg PO BEDTIME [facility] Last Admin: 10/19/17 20:28 Dose: 10 mg Metoprolol Tartrate (Lopressor) 25 mg PO BID@1200,2100 [facility] Last Admin: 10/19/17 20:26 Dose: 25 mg Multivitamins/Minerals (Thera M Plus) 1 tab PO DAILY [facility] Last Admin: 10/20/17 08:11 Dose: 1 tab Ondansetron HCl (Zofran Odt) 4 mg PO Q6H PRN PRN Reason: Nausea able to take PO Last Admin: 10/19/17 15:06 Dose: 4 mg Atorvastatin 40mg ( (Ptom)) 0 each PO BEDTIME [facility] Last Admin: 10/19/17 20:34 Dose: 1 each Gabapentin 600mg ( (Ptom)) 0 each PO TID [facility] Last Admin: 10/20/17 08:11 Dose: 1 each Pramipexole Dihydrochloride (Mirapex) 0.5 mg PO BEDTIME [facility] Last Admin: 10/19/17 20:28 Dose: 0.5 mg Ranitidine HCl (Zantac) 150 mg PO BID@1200,2100 [facility] Last Admin: 10/19/17 20:28 Dose: 150 mg Senna/Docusate Sodium (Senna Plus) 1 tab PO BID PRN PRN Reason: Constipation Ursodiol (Actigal) 300 mg PO BID [facility] Last Admin: 10/20/17 08:11 Dose: 300 mg Discontinued Medications Hydromorphone HCl (Dilaudid) 0.5 mg IVPUSH ONETIME ONE Stop: 10/19/17 10:38 Last Admin: 10/19/17 10:49 Dose: 0.5 mg Insulin Human Isoph/Insulin Regular (Novolin 70-30) 23 unit SUBCUT QPM [facility] Last Admin: 10/19/17 18:36 Dose: 10 units Insulin Human Isoph/Insulin Regular (Novolin 70-30) 35 unit SUBCUT DAILY [facility] Insulin Human Isoph/Insulin Regular (Novolin 70-30) 35 unit SUBCUT ACBREAKFAST [facility] Ondansetron HCl (Zofran) Confirm Administered Dose 4 mg .ROUTE .STK-MED ONE Stop: 10/19/17 09:59 Last Admin: 10/19/17 16:17 Dose: Not Given Ondansetron HCl (Zofran) 4 mg IVPUSH ONETIME ONE Stop: 10/19/17 10:21 Last Admin: 10/19/17 10:47 Dose: 4 mg Propofol (Diprivan 20 Ml) Confirm Administered Dose 200 mg .ROUTE .STK-MED ONE Stop: 10/19/17 10:02 Succinylcholine Chloride (Quelicin) Confirm Administered Dose 200 mg .ROUTE .STK -MED ONE Stop: 10/19/17 10:02 - Exam Quality Assessment: Denies: Supplemental Oxygen General: Reports: Alert, Cooperative, No Acute Distress HEENT: Reports: Other (large ecchymosis around both eyes and across her forehead and the bridge of her nose) Lungs: Reports: Normal Respiratory Effort GI/Abdominal Exam: No Distention Psy/Mental Status: Reports: Alert, Normal Affect *Q Meaningful Use (DIS) - VTE *Q VTE Criteria *Q: VTE Pharmacological Contraindications *Q: Risk of Bleeding - Stroke *Q Stroke Criteria *Q: - AMI *Q AMI Criteria *Q:
[2017-10-20] MEDS ORDERED: FLUOXETINE 20 MG PO SCH (12:00)
[2017-10-20] MEDS ORDERED: Furosemide 20 MG Tab (PTOM) PO SCH (12:00)
[2017-10-20] MEDS: Metoprolol Tartrate 25 MG Tab (PTOM) PO SCH (12:23)
[2017-10-20 12:24] VITALS: BP 112/65
[2017-10-20] MEDS: Ranitidine 150 MG Tab (PTOM) PO SCH (12:24)
== END 2017-10-20 14:00 | disposition home health service (06) ==
LOC: JP.ED 09:37 → JP.2SS 12:23
PROVIDERS: ADMIT Internal Medicine; ATTEND Internal Medicine
DX: S09.90XA Unspecified injury of head, initial encounter (principal); S00.03XA Contusion of scalp, initial encounter; S00.33XA Contusion of nose, initial encounter; S00.83XA Contusion of other part of head, initial encounter; S00.11XA Contusion of right eyelid and periocular area, initial encounter; S00.12XA Contusion of left eyelid and periocular area, initial encounter; N30.90 Cystitis, unspecified without hematuria; B96.89 Other specified bacterial agents as the cause of diseases classified elsewhere; F03.90 Unspecified dementia, unspecified severity, without behavioral disturbance, psychotic disturbance, mood disturbance, and anxiety; E78.00 Pure hypercholesterolemia, unspecified; I10 Essential (primary) hypertension; G47.30 Sleep apnea, unspecified; M19.90 Unspecified osteoarthritis, unspecified site; G89.29 Other chronic pain; M54.9 Dorsalgia, unspecified; F32.9 Major depressive disorder, single episode, unspecified; F41.9 Anxiety disorder, unspecified; E11.40 Type 2 diabetes mellitus with diabetic neuropathy, unspecified; M79.7 Fibromyalgia; M81.0 Age-related osteoporosis without current pathological fracture; Z86.010 Personal history of colon polyps; Z86.73 Personal history of transient ischemic attack (TIA), and cerebral infarction without residual deficits; Z96.659 Presence of unspecified artificial knee joint; Z79.4 Long term (current) use of insulin; Z79.01 Long term (current) use of anticoagulants; Z79.899 Other long term (current) drug therapy; Z88.2 Allergy status to sulfonamides; Z88.6 Allergy status to analgesic agent; Z88.5 Allergy status to narcotic agent; Z88.8 Allergy status to other drugs, medicaments and biological substances; Z98.49 Cataract extraction status, unspecified eye; Z90.49 Acquired absence of other specified parts of digestive tract; Z98.890 Other specified postprocedural states; W19.XXXA Unspecified fall, initial encounter
CPT/HCPCS: 36415; 70450; 70486; 72125; 80053; 81001; 82962; 85025; 85610; 87086; 87088; 87186; 96365; 96375; 97162; 99285; A9270; G0378; J0696; J1170; J2405; J7050; 96374; 99217; 99220; J0330; J2704

== ENCOUNTER 2018-02-09 18:25 | Emergency (ER) | payer MEDICARE, BC ==
[2018-02-09 18:34] VITALS: BP 154/76
--- NOTE | 2018-02-09 19:40 | EDM.PDOC ---
ED HPI GENERAL MEDICAL PROBLEM - General Chief Complaint: Head Injury Stated Complaint: FELL HURT HEAD Time Seen by Provider: 02/09/18 18:35 Source of Information: Reports: Patient, Family History Limitations: Reports: No Limitations - History of Present Illness INITIAL COMMENTS - FREE TEXT/NARRATIVE: 77-year-old female with a previous history of stroke on anticoagulation stumbled backwards at a local business hitting the back of her head on a tile floor. She did not lose consciousness but had some tenderness and swelling on the back of the head, EMS was called but the patient decided to come in by private car. She is starting to develop a small amount of neck soreness but she has no significant headache, neurologic complaints or nausea or vomiting. Onset: Sudden Duration: Hour(s): (within the last hour) Location: Reports: Head Severity: Mild Associated Symptoms: Reports: No Other Symptoms headache Pain Score (Numeric/FACES): 4 - Related Data Allergies Allergy/AdvReac Type Severity Reaction Status Date / Time celecoxib [From Celebrex] Allergy Rash Verified 02/09/18 18:35 metformin HCl Allergy Cannot Verified 02/09/18 18:35 [From Glucophage] Remember paroxetine Allergy Cannot Verified 02/09/18 18:35 Remember prednisone Allergy Cannot Verified 02/09/18 18:35 Remember rofecoxib [From Vioxx] Allergy Rash Verified 02/09/18 18:35 Sulfa (Sulfonamide Allergy Cannot Verified 02/09/18 18:35 Antibiotics) Remember sulfasalazine Allergy Cannot Verified 02/09/18 18:35 [From Azulfidine] Remember codeine AdvReac Itching Verified 02/09/18 18:35 cyclobenzaprine AdvReac Itching Verified 02/09/18 18:35 environmental Allergy Cannot Uncoded 02/09/18 18:35 Remember Home Meds: Home Meds Furosemide [Lasix] 20 mg PO DAILY 08/22/13 [History] Multivitamin with Minerals [Multiple Vitamin] 1 tab PO DAILY 08/22/13 [History] Pramipexole [Mirapex] 0.5 mg PO BEDTIME 03/30/16 [History] Ranitidine [Zantac] 150 mg PO BID 03/30/16 [History] Metoprolol Tartrate [Lopressor] 25 mg PO BID 03/26/17 [History] Warfarin [Coumadin] 2.5 mg PO ASDIRECTED 03/26/17 [History] atorvaSTATin [Lipitor] 40 mg PO BEDTIME 03/26/17 [History] FLUoxetine HCl [Fluoxetine HCl] 60 mg PO DAILY 10/19/17 [History] Gabapentin [Neurontin] 300 mg PO TID 10/19/17 [History] Gabapentin [Neurontin] 600 mg PO TID 10/19/17 [History] Insulin NPH Hum/Reg Insulin Hm [Novolin 70-30 100 Unit/ml Vial] 10 units SQ QPM 10/19/17 [History] Insulin NPH Hum/Reg Insulin Hm [Novolin 70-30 100 Unit/ml Vial] 23 units SQ ACBREAKFAST 10/19/17 [History] Meclizine [Antivert] 25 mg PO TID PRN 10/19/17 [History] Memantine HCl 10 mg PO DAILY 10/19/17 [History] Ursodiol 300 mg PO BID 10/19/17 [History] Past Medical History HEENT History: Reports: Cataract, Impaired Vision Cardiovascular History: Reports: High Cholesterol, Hypertension, Other (See Below) Other Cardiovascular History: bradycardia Respiratory History: Reports: Sleep Apnea Gastrointestinal History: Reports: Bowel Obstruction, Colon Polyp, Diverticulosis, Hemorrhoids Genitourinary History: Reports: UTI, Recurrent Other OB/BYN History: removal of one ovary and fallopian tube Musculoskeletal History: Reports: Arthritis, Back Pain, Chronic, Fracture, Fibromyalgia, Osteoporosis Neurological History: Reports: Concussion, Neuropathy, Diabetic, TIA, Other ( See Below) Other Neuro History: dementia Psychiatric History: Reports: Anxiety, Dementia, Depression Endocrine/Metabolic History: Reports: Diabetes, Type II, Osteoporosis Hematologic History: Reports: Anemia, Anticoagulation Therapy Dermatologic History: Reports: Psoriasis - Infectious Disease History Infectious Disease History: Reports: Other (See Below) Other Infectious Disease History: unknown - Past Surgical History HEENT Surgical History: Reports: Cataract Surgery Cardiovascular Surgical History: Reports: Pacer GI Surgical History: Reports: Appendectomy, Cholecystectomy, Hernia Repair/Other , Other (See Below) Musculoskeletal Surgical History: Reports: Knee Replacement, Other (See Below) Social & Family History - Tobacco Use Smoking Status *Q: Never Smoker Years of Tobacco use: 5 Packs/Tins Daily: 1 Used Tobacco, but Quit: No Second Hand Smoke Exposure: No - Caffeine Use Caffeine Use: Reports: Coffee Other Caffeine Use: unknown Caffeine Use Comment: 8-10 cups/day - Alcohol Use Days Per Week of Alcohol Use: 0 - Recreational Drug Use Recreational Drug Use: No ED ROS GENERAL - Review of Systems Review Of Systems: See Below Constitutional: Denies: Fever, Chills Respiratory: Denies: Shortness of Breath GI/Abdominal: Denies: Nausea, Vomiting Skin: Reports: Bruising (slight abrasion and bruising on the posterior scalp) Neurological: Denies: Headache ED EXAM, HEAD INJURY - Physical Exam Exam: See Below Exam Limited By: No Limitations General Appearance: Alert, No Apparent Distress Head: Scalp Hematoma (occiput), Scalp Tenderness Eyes: Bilateral Eye: EOMI Neck: Non-Tender, Full Range of Motion Respiratory: No Respiratory Distress Neurologic: Alert, Oriented x 3, Other (patient has her normal level of strength without new deficit) Course - Vital Signs Last Recorded V/S: Last Vital Signs Temp 97.5 F 02/09/18 18:31 Pulse 63 02/09/18 18:31 Resp 16 02/09/18 18:31 BP 154/76 H 02/09/18 18:31 Pulse Ox 95 02/09/18 18:31 - Orders/Labs/Meds Orders: Active Orders 24 hr Category Date Time Status Head wo Cont [CT] Stat Exams 02/09/18 18:38 Taken - Re-Assessments/Exams Free Text/Narrative Re-Assessment/Exam: 02/09/18 19:37 CT of the head without contrast was obtained and showed no acute injury or hemorrhage. She continued to be comfortable other than some mild back and neck stiffness. She was reassured and discharged. Departure - Departure Time of Disposition: 19:56 Disposition: Home, Self-Care 01 Condition: Good Clinical Impression: Head injury due to trauma Qualifiers: Encounter type: initial encounter Qualified Code(s): S09.90XA - Unspecified injury of head, initial encounter - Discharge Information Instructions: Head Injury, Adult, [id number] Referrals: Riley Millan MD [Primary Care Provider] - Forms: ED Department Discharge Care Plan Goals: Continue your current medications and activity as tolerated. Tylenol for neck stiffness and soreness and return anytime if worsening or concerns. - My Orders Last 24 Hours: My Active Orders 02/09/18 18:38 Head wo Cont [CT] Stat - Assessment/Plan Last 24 Hours: My Active Orders 02/09/18 18:38 Head wo Cont [CT] Stat
== END 2018-02-09 19:56 | disposition home or self-care (01) ==
LOC: JP.ED 18:25
DX: S00.03XA Contusion of scalp, initial encounter (principal); S09.90XA Unspecified injury of head, initial encounter; I10 Essential (primary) hypertension; E78.00 Pure hypercholesterolemia, unspecified; E11.40 Type 2 diabetes mellitus with diabetic neuropathy, unspecified; Z88.8 Allergy status to other drugs, medicaments and biological substances; Z88.1 Allergy status to other antibiotic agents; Z88.2 Allergy status to sulfonamides; Z79.01 Long term (current) use of anticoagulants; Z79.899 Other long term (current) drug therapy; Z79.4 Long term (current) use of insulin; Z88.5 Allergy status to narcotic agent; Z91.09 Other allergy status, other than to drugs and biological substances; Z86.73 Personal history of transient ischemic attack (TIA), and cerebral infarction without residual deficits; W22.8XXA Striking against or struck by other objects, initial encounter
CPT/HCPCS: 70450; 99284-25

== ENCOUNTER 2018-03-27 01:28 | Emergency (ER) | payer MEDICARE, BC ==
[2018-03-27 01:50] VITALS: BP 174/95
[2018-03-27] MEDS ORDERED: Bacitracin Oint 1 GM U/D Packet TOP ONE (01:59)
--- NOTE | 2018-03-27 02:04 | EDM.PDOC ---
ED HPI GENERAL MEDICAL PROBLEM - General Chief Complaint: Laceration Stated Complaint: SKIN TEAR Time Seen by Provider: 03/27/18 01:50 Source of Information: Reports: Patient History Limitations: Reports: No Limitations - History of Present Illness INITIAL COMMENTS - FREE TEXT/NARRATIVE: 77-year-old female fell at home sustaining a laceration to her posterior lateral right upper arm. No other injury. Onset: Sudden Duration: Hour(s): (Within the last hour) Location: Reports: Upper Extremity, Right Severity: Mild Associated Symptoms: Reports: No Other Symptoms Right Arm Pain Score (Numeric/FACES): 10 - Related Data Allergies Allergy/AdvReac Type Severity Reaction Status Date / Time celecoxib [From Celebrex] Allergy Rash Verified 03/27/18 01:31 metformin HCl Allergy Cannot Verified 03/27/18 01:31 [From Glucophage] Remember paroxetine Allergy Cannot Verified 03/27/18 01:31 Remember prednisone Allergy Cannot Verified 03/27/18 01:31 Remember rofecoxib [From Vioxx] Allergy Rash Verified 03/27/18 01:31 Sulfa (Sulfonamide Allergy Cannot Verified 03/27/18 01:31 Antibiotics) Remember sulfasalazine Allergy Cannot Verified 03/27/18 01:31 [From Azulfidine] Remember codeine AdvReac Itching Verified 03/27/18 01:31 cyclobenzaprine AdvReac Itching Verified 03/27/18 01:31 environmental Allergy Cannot Uncoded 03/27/18 01:31 Remember Home Meds: Home Meds Furosemide [Lasix] 20 mg PO DAILY 08/22/13 [History] Multivitamin with Minerals [Multiple Vitamin] 1 tab PO DAILY 08/22/13 [History] Pramipexole [Mirapex] 0.5 mg PO BEDTIME 03/30/16 [History] Ranitidine [Zantac] 150 mg PO BID 03/30/16 [History] Metoprolol Tartrate [Lopressor] 25 mg PO BID 03/26/17 [History] Warfarin [Coumadin] 2.5 mg PO ASDIRECTED 03/26/17 [History] atorvaSTATin [Lipitor] 40 mg PO BEDTIME 03/26/17 [History] FLUoxetine HCl [Fluoxetine HCl] 60 mg PO DAILY 10/19/17 [History] Gabapentin [Neurontin] 300 mg PO TID 10/19/17 [History] Gabapentin [Neurontin] 600 mg PO TID 10/19/17 [History] Insulin NPH Hum/Reg Insulin Hm [Novolin 70-30 100 Unit/ml Vial] 10 units SQ QPM 10/19/17 [History] Insulin NPH Hum/Reg Insulin Hm [Novolin 70-30 100 Unit/ml Vial] 23 units SQ ACBREAKFAST 10/19/17 [History] Meclizine [Antivert] 25 mg PO TID PRN 10/19/17 [History] Memantine HCl 10 mg PO DAILY 10/19/17 [History] Ursodiol 300 mg PO BID 10/19/17 [History] Past Medical History HEENT History: Reports: Cataract, Impaired Vision Cardiovascular History: Reports: High Cholesterol, Hypertension, Other (See Below) Other Cardiovascular History: bradycardia Respiratory History: Reports: Sleep Apnea Gastrointestinal History: Reports: Bowel Obstruction, Colon Polyp, Diverticulosis, Hemorrhoids Genitourinary History: Reports: UTI, Recurrent Other OB/BYN History: removal of one ovary and fallopian tube Musculoskeletal History: Reports: Arthritis, Back Pain, Chronic, Fracture, Fibromyalgia, Osteoporosis Neurological History: Reports: Concussion, Neuropathy, Diabetic, TIA, Other ( See Below) Other Neuro History: dementia Psychiatric History: Reports: Anxiety, Dementia, Depression Endocrine/Metabolic History: Reports: Diabetes, Type II, Osteoporosis Hematologic History: Reports: Anemia, Anticoagulation Therapy Dermatologic History: Reports: Psoriasis - Infectious Disease History Infectious Disease History: Reports: Chicken Pox Other Infectious Disease History: unknown - Past Surgical History HEENT Surgical History: Reports: Cataract Surgery Cardiovascular Surgical History: Reports: Pacer GI Surgical History: Reports: Appendectomy, Cholecystectomy, Hernia Repair/Other , Other (See Below) Musculoskeletal Surgical History: Reports: Knee Replacement, Other (See Below) Social & Family History - Tobacco Use Smoking Status *Q: Never Smoker Second Hand Smoke Exposure: No - Caffeine Use Caffeine Use: Reports: Coffee Other Caffeine Use: unknown Caffeine Use Comment: 8-10 cups/day - Recreational Drug Use Recreational Drug Use: No ED ROS GENERAL - Review of Systems Review Of Systems: See Below Constitutional: Denies: Fever Respiratory: Denies: Shortness of Breath Cardiovascular: Denies: Chest Pain GI/Abdominal: Denies: Nausea, Vomiting Skin: Denies: Bruising ED EXAM, SKIN/RASH Exam: See Below Exam Limited By: No Limitations General Appearance: Alert, No Apparent Distress Head: Atraumatic Neck: Non-Tender Respiratory/Chest: No Respiratory Distress Extremities: Other (Exam is otherwise limited to the injured area of the right arm. Laterally on the fleshy area of the posterior arm she has a 4 cm laceration into the subcutaneous tissue.) Course - Vital Signs Last Recorded V/S: Last Vital Signs Temp 96.3 F 03/27/18 01:52 Pulse 87 03/27/18 01:52 Resp 17 03/27/18 01:52 BP 174/95 H 03/27/18 01:52 Pulse Ox 95 03/27/18 01:52 - Orders/Labs/Meds Meds: Medications Discontinued Medications Generic Name Dose Route Start Last Admin Trade Name Freq PRN Reason Stop Dose Admin Bacitracin 1 dose 03/27/18 01:59 03/27/18 02:03 Bacitracin Oint 1 Gm TOP 03/27/18 02:00 1 dose ONETIME ONE Administration Lidocaine HCl 5 ml 03/27/18 01:59 03/27/18 02:03 Xylocaine-Mpf 1% INJECT 03/27/18 02:00 5 ml ONETIME ONE Administration - Re-Assessments/Exams Free Text/Narrative Re-Assessment/Exam: 03/27/18 02:03 The area was anesthetized with 1% lidocaine and closed with 4-0 Ethilon running suture. Bacitracin and a bandage was applied. Sutures can be removed in 8 days, patient is to keep the wound covered and clean while healing. Departure - Departure Time of Disposition: 02:29 Disposition: Home, Self-Care 01 Condition: Good Clinical Impression: Laceration of arm Qualifiers: Encounter type: initial encounter Laterality: right Qualified Code(s): S41.111A - Laceration without foreign body of right upper arm, initial encounter - Discharge Information Instructions: Laceration Care, Adult Referrals: PCP,None [Primary Care Provider] - Forms: ED Department Discharge Care Plan Goals: Keep wound covered and clean while healing, and return in 8 days for suture removal. Recheck sooner if concerns of infection or not healing satisfactorily.
== END 2018-03-27 02:28 | disposition home or self-care (01) ==
LOC: JP.ED 01:28
DX: S41.111A Laceration without foreign body of right upper arm, initial encounter (principal); E11.40 Type 2 diabetes mellitus with diabetic neuropathy, unspecified; I10 Essential (primary) hypertension; E78.00 Pure hypercholesterolemia, unspecified; Z79.01 Long term (current) use of anticoagulants; Z88.1 Allergy status to other antibiotic agents; Z88.2 Allergy status to sulfonamides; Z88.5 Allergy status to narcotic agent; Z91.09 Other allergy status, other than to drugs and biological substances; W18.30XA Fall on same level, unspecified, initial encounter
CPT/HCPCS: 12002; 99283-25

== ENCOUNTER 2018-05-25 02:11 | Inpatient (IN) | payer MEDICARE, BC ==
[2018-05-25] MEDS ORDERED: fentaNYL 100 MCG/2 ML SDV IM ONE (02:56)
--- NOTE | 2018-05-25 03:15 | EDM.PDOC ---
ED HPI GENERAL MEDICAL PROBLEM - General Chief Complaint: Back Pain or Injury Stated Complaint: FALL VIA NORTH Time Seen by Provider: 05/25/18 02:35 Source of Information: Reports: Patient, EMS, Family History Limitations: Reports: No Limitations - History of Present Illness INITIAL COMMENTS - FREE TEXT/NARRATIVE: 77-year-old female was up using the bathroom at home when she fell. She normally uses a walker for assistance but had not been using it. It is unclear how she fell, whether she fell onto her back or her side but she was unable to get up and when her family tried to move her she was complaining of back pain. EMS was called, their brief evaluation felt her pain was coming from her back. She had no shortness of breath, nausea vomiting or apparent head injury. There were no outward signs of trauma. Patient now complains of pain in her back while lying still, much worse if she tries to move. Onset: Sudden Duration: Hour(s): (Fell within the last hour) Location: Reports: Chest, Back Quality: Reports: Sharp, Stabbing Severity: Moderate Worsens with: Reports: Breathing, Movement Associated Symptoms: Reports: No Other Symptoms [place] Pain Score (Numeric/FACES): 6 - Related Data Allergies Allergy/AdvReac Type Severity Reaction Status Date / Time celecoxib [From Celebrex] Allergy Rash Verified 05/25/18 02:30 metformin HCl Allergy Cannot Verified 05/25/18 02:30 [From Glucophage] Remember paroxetine Allergy Cannot Verified 05/25/18 02:30 Remember prednisone Allergy Cannot Verified 05/25/18 02:30 Remember rofecoxib [From Vioxx] Allergy Rash Verified 05/25/18 02:30 Sulfa (Sulfonamide Allergy Cannot Verified 05/25/18 02:30 Antibiotics) Remember sulfasalazine Allergy Cannot Verified 05/25/18 02:30 [From Azulfidine] Remember codeine AdvReac Itching Verified 05/25/18 02:30 cyclobenzaprine AdvReac Itching Verified 05/25/18 02:30 environmental Allergy Cannot Uncoded 05/25/18 02:30 Remember Home Meds: Home Meds Furosemide [Lasix] 20 mg PO DAILY 08/22/13 [History] Multivitamin with Minerals [Multiple Vitamin] 1 tab PO DAILY 08/22/13 [History] Pramipexole [Mirapex] 0.5 mg PO BEDTIME 03/30/16 [History] Ranitidine [Zantac] 150 mg PO BID 03/30/16 [History] Metoprolol Tartrate [Lopressor] 25 mg PO BID 03/26/17 [History] Warfarin [Coumadin] 2.5 mg PO ASDIRECTED 03/26/17 [History] atorvaSTATin [Lipitor] 40 mg PO BEDTIME 03/26/17 [History] FLUoxetine HCl [Fluoxetine HCl] 60 mg PO DAILY 10/19/17 [History] Gabapentin [Neurontin] 300 mg PO TID 10/19/17 [History] Gabapentin [Neurontin] 600 mg PO TID 10/19/17 [History] Insulin NPH Hum/Reg Insulin Hm [Novolin 70-30 100 Unit/ml Vial] 10 units SQ QPM 10/19/17 [History] Insulin NPH Hum/Reg Insulin Hm [Novolin 70-30 100 Unit/ml Vial] 23 units SQ ACBREAKFAST 10/19/17 [History] Meclizine [Antivert] 25 mg PO TID PRN 10/19/17 [History] Memantine HCl 10 mg PO DAILY 10/19/17 [History] Ursodiol 300 mg PO BID 10/19/17 [History] Past Medical History HEENT History: Reports: Cataract, Impaired Vision Cardiovascular History: Reports: High Cholesterol, Hypertension, Other (See Below) Other Cardiovascular History: bradycardia Respiratory History: Reports: Sleep Apnea Gastrointestinal History: Reports: Bowel Obstruction, Colon Polyp, Diverticulosis, Hemorrhoids Genitourinary History: Reports: UTI, Recurrent Other [employer] History: removal of one ovary and fallopian tube Musculoskeletal History: Reports: Arthritis, Back Pain, Chronic, Fracture, Fibromyalgia, Osteoporosis Neurological History: Reports: Concussion, Neuropathy, Diabetic, TIA, Other ( See Below) Other Neuro History: dementia Psychiatric History: Reports: Anxiety, Dementia, Depression Endocrine/Metabolic History: Reports: Diabetes, Type II, Osteoporosis Hematologic History: Reports: Anemia, Anticoagulation Therapy Dermatologic History: Reports: Psoriasis - Infectious Disease History Infectious Disease History: Reports: Chicken Pox, Measles Other Infectious Disease History: unknown - Past Surgical History HEENT Surgical History: Reports: Cataract Surgery Cardiovascular Surgical History: Reports: Pacer GI Surgical History: Reports: Appendectomy, Cholecystectomy, Hernia Repair/Other , Other (See Below) Musculoskeletal Surgical History: Reports: Knee Replacement, Other (See Below) Social & Family History - Tobacco Use Smoking Status *Q: Unknown Ever Smoked Second Hand Smoke Exposure: No - Caffeine Use Caffeine Use: Reports: Coffee Other Caffeine Use: unknown Caffeine Use Comment: 8-10 cups/day - Recreational Drug Use Recreational Drug Use: No ED ROS GENERAL - Review of Systems Review Of Systems: See Below Constitutional: Denies: Fever, Chills HEENT: Reports: No Symptoms Respiratory: Denies: Shortness of Breath Cardiovascular: Reports: Chest Pain (Complaining of some lower chest and upper abdominal discomfort) GI/Abdominal: Reports: Abdominal Pain (Upper abdomen is uncomfortable) : Reports: No Symptoms Musculoskeletal: Reports: Back Pain Skin: Reports: No Symptoms Neurological: Reports: Confusion, Other (Has dementia). Denies: Headache ED EXAM, UPPER BACK/NECK PAIN - Physical Exam Exam: See Below Exam Limited By: Physical Impairment (Has dementia) General Appearance: Alert, Anxious, Mild Distress Eye Exam: Bilateral Eye: EOMI Head Exam: Atraumatic Neck Exam: Non-Tender Cardiovascular/Respiratory: No Respiratory Distress GI/Abdominal: Soft, Tender (Reacting to some discomfort with palpation of the abdomen, no focal tenderness) Back Exam: Other (Patient had marked difficulty log rolling, and focused her pain to the mid thoracic spine with exam on palpation) Extremities: Other (Patient can lift both lower extremities against gravity, internal and external rotation passively of each hip was nontender. No evidence of trauma to the upper extremities) Neurologic: Alert Skin Exam: Normal Color, Warm/Dry Course - Vital Signs Last Recorded V/S: Last Vital Signs Temp 97.1 F 05/25/18 14:57 Pulse 62 05/25/18 14:57 Resp 18 05/25/18 14:57 BP 126/97 H 05/25/18 14:57 Pulse Ox 92 L 05/25/18 15:00 - Orders/Labs/Meds Orders: Active Orders 24 hr Category Date Time Status Chest wo Cont [CT] Stat Exams 05/25/18 02:38 Taken Sodium Chloride 0.9% [Saline Flush] Med 05/25/18 04:56 Active 10 ml FLUSH ASDIRECTED PRN Saline Lock Insert [OM.PC] Routine Oth 05/25/18 04:56 Ordered Medication Orders Acetaminophen (Tylenol) 650 mg PO Q4H PRN PRN Reason: Pain (Mild 1-3)/fever Hydrocodone Bitart/Acetaminophen ([place] 325-5 Mg) 1 tab PO Q4H PRN PRN Reason: Pain (moderate 4-6) Albuterol (Proventil Neb Soln) 2.5 mg NEB Q4H PRN PRN Reason: Shortness Of Breath/wheezing Hydromorphone HCl (Dilaudid) 0.25 mg IVPUSH Q4H PRN PRN Reason: Pain (moderate 4-6) Sodium Chloride (Normal Saline) 1,000 mls @ 50 mls/hr IV ASDIRECTED [facility], 1928–1983 Ceftriaxone Sodium 1 gm/ (Sodium Chloride) 50 mls @ 100 mls/hr IV Q24H [facility], [facility]–1983 Last Admin: 05/25/18 13:44 Dose: 100 mls/hr Insulin Aspart (Novolog) 0 unit SUBCUT BIDAC [facility], 1928–1983; Protocol Last Admin: 05/25/18 16:39 Dose: 1 unit Admin: 05/25/18 09:32 Dose: 1 unit Ondansetron HCl (Zofran) 4 mg IV Q6H PRN PRN Reason: Nausea/Vomiting Senna/Docusate Sodium (Senna Plus) 1 tab PO BID PRN PRN Reason: Constipation Sodium Chloride (Saline Flush) 10 ml FLUSH ASDIRECTED PRN PRN Reason: Keep Vein Open Labs: Laboratory Tests 05/25/18 05/25/18 05/25/18 Range/Units 05:10 05:10 05:10 WBC 10.7 (4.5-11.0) K/uL RBC 4.39 (3.30-5.50) M/uL Hgb 14.1 (12.0-15.0) g/dL Hct 41.9 (36.0-48.0) % MCV 95 (80-98) fL MCH 32 H (27-31) pg MCHC 34 (32-36) % Plt Count 156 (150-400) K/uL Neut % (Auto) 74 H (36-66) % Lymph % (Auto) 15 L (24-44) % [place] % (Auto) 9 H (2-6) % Eos % (Auto) 1 L (2-4) % Baso % (Auto) 1 (0-1) % PT 11.1 (9.5-12.0) sec INR 1.01 (0.80-1.20) Sodium 140 (140-148) mmol/L Potassium 4.3 (3.6-5.2) mmol/L Chloride 103 (100-108) mmol/L Carbon Dioxide 29 (21-32) mmol/L Anion Gap 7.7 (5.0-14.0) mmol/L BUN 21 H (7-18) mg/dL Creatinine 1.0 (0.6-1.0) mg/dL Est Cr Clr Drug Dosing 41.72 mL/min Estimated GFR (MDRD) 54 L (>60) Glucose 180 H (74-106) mg/dL Calcium 9.3 (8.5-10.1) mg/dL Total Bilirubin 0.7 (0.2-1.0) mg/dL AST 44 H (15-37) U/L ALT 29 (12-78) U/L Alkaline Phosphatase 104 (46-116) U/L Total Protein 6.9 (6.4-8.2) g/dL Albumin 2.8 L (3.4-5.0) g/dL Globulin 4.1 H (2.3-3.5) g/dL Albumin/Globulin Ratio 0.7 L (1.2-2.2) Meds: Medications Generic Name Dose Route Start Last Admin Trade Name Freq PRN Reason Stop Dose Admin Acetaminophen 650 mg 05/25/18 05:35 Tylenol PO Q4H PRN Pain (Mild 1-3)/fever Hydrocodone Bitart/Acetaminophen 1 tab 05/25/18 12:19 [place] 325-5 Mg PO Q4H PRN Pain (moderate 4-6) Albuterol 2.5 mg 05/25/18 05:35 Proventil Neb Soln NEB Q4H PRN Shortness Of Breath/wheezing Hydromorphone HCl 0.25 mg 05/25/18 12:21 Dilaudid IVPUSH Q4H PRN Pain (moderate 4-6) Sodium Chloride 1,000 mls @ 50 mls/hr 05/25/18 12:30 Normal Saline IV ASDIRECTED PALOMO Ceftriaxone Sodium 1 gm/ 50 mls @ 100 mls/hr 05/25/18 14:00 05/25/18 13:44 Sodium Chloride IV 100 mls/hr Q24H PALOMO Administration Insulin Aspart 0 unit 05/25/18 07:30 05/25/18 16:39 Novolog SUBCUT 1 unit BIDAC PALOMO Administration Protocol Ondansetron HCl 4 mg 05/25/18 05:35 Zofran IV Q6H PRN Nausea/Vomiting Senna/Docusate Sodium 1 tab 05/25/18 05:35 Senna Plus PO BID PRN Constipation Sodium Chloride 10 ml 05/25/18 04:56 Saline Flush FLUSH ASDIRECTED PRN Keep Vein Open Discontinued Medications Generic Name Dose Route Start Last Admin Trade Name Freq PRN Reason Stop Dose Admin Hydrocodone Bitart/Acetaminophen 1 tab 05/25/18 06:17 [place] 325-5 Mg PO Q6H PRN Pain (moderate 4-6) Fentanyl 50 mcg 05/25/18 02:56 05/25/18 03:03 Sublimaze IM 05/25/18 02:57 50 mcg ONETIME ONE Administration Hydromorphone HCl 0.5 mg 05/25/18 06:16 05/25/18 11:24 Dilaudid IVPUSH 0.5 mg Q4H PRN Administration Pain (moderate 4-6) Sodium Chloride 1,000 mls @ 125 mls/hr 05/25/18 06:15 05/25/18 06:51 Normal Saline IV 125 mls/hr ASDIRECTED PALOMO Administration - Re-Assessments/Exams Free Text/Narrative Re-Assessment/Exam: 05/25/18 03:[address] of the chest without contrast was obtained to assess the ribs, spine, lungs and upper abdomen. Patient would not tolerate moving to CT without pain control so she was given 50 g of fentanyl IM. 05/25/18 04:49 CT showed no acute trauma the back, lungs were normal. There were healing rib fractures anteriorly where there was no pain. Patient responded fairly well to the fentanyl. She wanted to try to go home. 05/25/18 04:[address] scan being negative, the patient could not sit up without intense pain and it wasn't felt safe that she can go home even with the assistance of her family. I asked Dr. Stern to see the patient for admission for pain control and hospitalist evaluation. CBC,CMP and INR were obtained. Departure - Departure Time of Disposition: 07:06 Disposition: Home, Self-Care 01 Condition: Fair Clinical Impression: Contusion, chest wall Acute back pain Qualifiers: Back pain location: thoracic back pain Back pain laterality: midline Qualified Code(s): M54.6 - Pain in thoracic spine - Discharge Information - My Orders Last 24 Hours: My Active Orders 05/25/18 02:38 Chest wo Cont [CT] Stat 05/25/18 04:56 Sodium Chloride 0.9% [Saline Flush] 10 ml FLUSH ASDIRECTED PRN Saline Lock Insert [OM.PC] Routine - Assessment/Plan Last 24 Hours: My Active Orders 05/25/18 02:38 Chest wo Cont [CT] Stat 05/25/18 04:56 Sodium Chloride 0.9% [Saline Flush] 10 ml FLUSH ASDIRECTED PRN Saline Lock Insert [OM.PC] Routine
[2018-05-25] MEDS ORDERED: Sodium Chloride 0.9% 10 ML Syringe FLUSH PRN (04:56)
[2018-05-25] MEDS ORDERED: Albuterol 0.083% 2.5 MG/3 ML Neb Soln NEB PRN (05:35)
[2018-05-25] MEDS ORDERED: Ondansetron 4 MG/2 ML SDV IV PRN (05:35)
--- NOTE | 2018-05-25 06:10 | PCM.HP ---
H&P History of Present Illness - General Date of Service: 05/25/18 Admit Problem/Dx: Admission Diagnosis/Problem Admission Diagnosis/Problem Pain management Source of Information: Patient, EMS, Family History Limitations: Reports: Altered Mental Status - History of Present Illness Initial Comments - Free Text/Narative: 77-year-old female past medical history of diabetes, hypothyroidism, hypertension, hyperlipidemia, recurrent falls, balance disorder, chronic back pain, atrial fibrillation, pacemaker, restless leg syndrome, obstructive sleep apnea not using CPAP patient came to the ED with a complaining of fall. Patient fell at midnight and landed on her back. Patient did not have any head injury during the event. Patient denies any loss of consciousness. Patient accompanied with daughters. Patient has significant dementia. Most of the history, got from her daughters. Patient denies any upper chest pain complaining of the abdominal pain, mid back pain 4-5/10 intensity increases with activity. Patient denies any upper chest pains. Complaining of intermittent breathing difficulty. Patient denies any recent fever, sick contacts. Patient recently diagnosed with urinary tract infection successfully treated with antibiotics. Patient daughters reports that patient has foul-smelling urine since last 1-2 days. Patient has been Coumadin for atrial fibrillation. Complaint with insulin doses In the ED patient had CT of the chest which showed age indeterminant nondisplaced fracture of the few anterior bilateral upper ribs. Age indeterminant mild compression fracture of T5. Mild compression fracture of the superior endplate of the T6 in favor of acute or subacute. No upper chest findings are noted in the chest CT. Patient treated with fentanyl. Received IV fluids. Patient WBC count at baseline. Patient is DNR/DNI. Other review of systems are not significant. [place] Pain Score (Numeric/FACES): 6 - Related Data Allergies/Adverse Reactions: Allergies Allergy/AdvReac Type Severity Reaction Status Date / Time celecoxib [From Celebrex] Allergy Rash Verified 05/25/18 02:30 metformin HCl Allergy Cannot Verified 05/25/18 02:30 [From Glucophage] Remember paroxetine Allergy Cannot Verified 05/25/18 02:30 Remember prednisone Allergy Cannot Verified 05/25/18 02:30 Remember rofecoxib [From Vioxx] Allergy Rash Verified 05/25/18 02:30 Sulfa (Sulfonamide Allergy Cannot Verified 05/25/18 02:30 Antibiotics) Remember sulfasalazine Allergy Cannot Verified 05/25/18 02:30 [From Azulfidine] Remember codeine AdvReac Itching Verified 05/25/18 02:30 cyclobenzaprine AdvReac Itching Verified 05/25/18 02:30 environmental Allergy Cannot Uncoded 05/25/18 02:30 Remember Home Medications: Home Meds Furosemide [Lasix] 20 mg PO DAILY 08/22/13 [History] Multivitamin with Minerals [Multiple Vitamin] 1 tab PO DAILY 08/22/13 [History] Pramipexole [Mirapex] 0.5 mg PO BEDTIME 03/30/16 [History] Ranitidine [Zantac] 150 mg PO BID 03/30/16 [History] Metoprolol Tartrate [Lopressor] 25 mg PO BID 03/26/17 [History] Warfarin [Coumadin] 2.5 mg PO ASDIRECTED 03/26/17 [History] atorvaSTATin [Lipitor] 40 mg PO BEDTIME 03/26/17 [History] FLUoxetine HCl [Fluoxetine HCl] 60 mg PO DAILY 10/19/17 [History] Gabapentin [Neurontin] 300 mg PO TID 10/19/17 [History] Gabapentin [Neurontin] 600 mg PO TID 10/19/17 [History] Insulin NPH Hum/Reg Insulin Hm [Novolin 70-30 100 Unit/ml Vial] 10 units SQ QPM 10/19/17 [History] Insulin NPH Hum/Reg Insulin Hm [Novolin 70-30 100 Unit/ml Vial] 23 units SQ ACBREAKFAST 10/19/17 [History] Meclizine [Antivert] 25 mg PO TID PRN 10/19/17 [History] Memantine HCl 10 mg PO DAILY 10/19/17 [History] Ursodiol 300 mg PO BID 10/19/17 [History] Past Medical History HEENT History: Reports: Cataract, Impaired Vision Cardiovascular History: Reports: High Cholesterol, Hypertension, Other (See Below) Other Cardiovascular History: bradycardia Respiratory History: Reports: Sleep Apnea Gastrointestinal History: Reports: Bowel Obstruction, Colon Polyp, Diverticulosis, Hemorrhoids Genitourinary History: Reports: UTI, Recurrent Other OB/BYN History: removal of one ovary and fallopian tube Musculoskeletal History: Reports: Arthritis, Back Pain, Chronic, Fracture, Fibromyalgia, Osteoporosis Neurological History: Reports: Concussion, Neuropathy, Diabetic, TIA, Other ( See Below) Other Neuro History: dementia Psychiatric History: Reports: Anxiety, Dementia, Depression Endocrine/Metabolic History: Reports: Diabetes, Type II, Osteoporosis Hematologic History: Reports: Anemia, Anticoagulation Therapy Dermatologic History: Reports: Psoriasis - Infectious Disease History Infectious Disease History: Reports: Chicken Pox, Measles Other Infectious Disease History: unknown - Past Surgical History HEENT Surgical History: Reports: Cataract Surgery Cardiovascular Surgical History: Reports: Pacer GI Surgical History: Reports: Appendectomy, Cholecystectomy, Hernia Repair/Other , Other (See Below) Musculoskeletal Surgical History: Reports: Knee Replacement, Other (See Below) Social & Family History - Family History Family Medical History: Noncontributory - Tobacco Use Smoking Status *Q: Unknown Ever Smoked Second Hand Smoke Exposure: No - Caffeine Use Caffeine Use: Reports: Coffee Other Caffeine Use: unknown Caffeine Use Comment: 8-10 cups/day - Recreational Drug Use Recreational Drug Use: No H&P Review of Systems - Review of Systems: Review Of Systems: See Below General: Denies: Fever, Chills Pulmonary: Reports: Shortness of Breath. Denies: Wheezing, Pleuritic Chest Pain , Cough, Sputum Cardiovascular: Reports: Chest Pain, Dyspnea on Exertion. Denies: Palpitations , Orthopnea, PND, Edema, Lightheadedness, Syncope Gastrointestinal: Reports: Abdominal Pain. Denies: Anorexia, Black Stool, Bloody Stool, Diarrhea, Decreased Appetite, Distension, Nausea Genitourinary: Reports: Incontinence, Retention. Denies: Dysuria, Frequency, Burning, Pain Musculoskeletal: Reports: Back Pain, Muscle Pain. Denies: Hand Pain, Leg Pain, Foot Pain, Joint Swelling, Muscle Stiffness Skin: Denies: Cyanosis, Jaundice Psychiatric: Reports: Confusion, Mood Lability. Denies: Depression, Anxiety, Agitation, Hallucinations Neurological: Denies: Confusion, Dizziness Hematologic/Lymphatic: Denies: Anemia, Easy Bleeding Exam - Exam Exam: See Below - Vital Signs Vital Signs: Last Vital Signs Temp 35.9 C 05/25/18 05:15 Pulse 88 05/25/18 05:15 Resp 16 05/25/18 05:15 BP 146/86 H 05/25/18 05:15 Pulse Ox 97 05/25/18 05:15 Weight: 80.739 kg - Exam General: Alert, Oriented Neck: Supple, Trachea Midline Lungs: Clear to Auscultation, Normal Respiratory Effort Cardiovascular: Irregular Rhythm GI/Abdominal Exam: Normal Bowel Sounds, Soft, Tender. No: Non-Tender, No Organomegaly, No Distention, No Mass Back Exam: Muscle Spasm, Vertebral Tenderness Extremities: Normal Inspection, Normal Range of Motion, Non-Tender, No Pedal Edema - Patient Data Lab Results Last 24 hrs: Laboratory Results - last 24 hr 05/25/18 05/25/18 05/25/18 Range/Units 05:10 05:10 05:10 WBC 10.7 (4.5-11.0) K/uL RBC 4.39 (3.30-5.50) M/uL Hgb 14.1 (12.0-15.0) g/dL Hct 41.9 (36.0-48.0) % MCV 95 (80-98) fL MCH 32 H (27-31) pg MCHC 34 (32-36) % Plt Count 156 (150-400) K/uL Neut % (Auto) 74 H (36-66) % Lymph % (Auto) 15 L (24-44) % [place] % (Auto) 9 H (2-6) % Eos % (Auto) 1 L (2-4) % Baso % (Auto) 1 (0-1) % PT 11.1 (9.5-12.0) sec INR 1.01 (0.80-1.20) Sodium 140 (140-148) mmol/L Potassium 4.3 (3.6-5.2) mmol/L Chloride 103 (100-108) mmol/L Carbon Dioxide 29 (21-32) mmol/L Anion Gap 7.7 (5.0-14.0) mmol/L BUN 21 H (7-18) mg/dL Creatinine 1.0 (0.6-1.0) mg/dL Est Cr Clr Drug Dosing 41.72 mL/min Estimated GFR (MDRD) 54 L (>60) Glucose 180 H (74-106) mg/dL Calcium 9.3 (8.5-10.1) mg/dL Total Bilirubin 0.7 (0.2-1.0) mg/dL AST 44 H (15-37) U/L ALT 29 (12-78) U/L Alkaline Phosphatase 104 (46-116) U/L Total Protein 6.9 (6.4-8.2) g/dL Albumin 2.8 L (3.4-5.0) g/dL Globulin 4.1 H (2.3-3.5) g/dL Albumin/Globulin Ratio 0.7 L (1.2-2.2) Result Diagrams: 05/25/18 05:10 05/25/18 05:10 - Problem List (1) Diabetes SNOMED Code(s): 93134898 ICD Code: E11.9 - TYPE 2 DIABETES MELLITUS WITHOUT COMPLICATIONS Status: Acute Current Visit: Yes (2) History of sacroiliac joint dysfunction SNOMED Code(s): 158707105 ICD Code: Z87.39 - PERSONAL HISTORY OF DISEASES OF THE MS SYS AND CONN TISS Status: Acute Current Visit: Yes (3) Hypothyroid SNOMED Code(s): 18184109 ICD Code: E03.9 - HYPOTHYROIDISM, UNSPECIFIED Status: Acute Current Visit : Yes (4) Urine incontinence SNOMED Code(s): 021405855 ICD Code: R32 - UNSPECIFIED URINARY INCONTINENCE Status: Acute Current Visit: Yes (5) PMR (polymyalgia rheumatica) SNOMED Code(s): 66038465 ICD Code: M35.3 - POLYMYALGIA RHEUMATICA Status: Acute Current Visit: Yes (6) JEANNETTE (obstructive sleep apnea) SNOMED Code(s): 52237567 ICD Code: G47.33 - OBSTRUCTIVE SLEEP APNEA (ADULT) (PEDIATRIC) Status: Acute Current Visit: Yes (7) Hx of cholangitis SNOMED Code(s): 336293340 ICD Code: Z87.19 - PERSONAL HISTORY OF OTHER DISEASES OF THE DIGESTIVE SYSTEM Status: Acute Current Visit: Yes (8) Osteoarthritis SNOMED Code(s): 556405490 ICD Code: M19.90 - UNSPECIFIED OSTEOARTHRITIS, UNSPECIFIED SITE Status: Acute Current Visit: Yes (9) Hyperlipemia SNOMED Code(s): 84315967 ICD Code: E78.5 - HYPERLIPIDEMIA, UNSPECIFIED Status: Acute Current Visit : Yes (10) Hypertension SNOMED Code(s): 08146682 ICD Code: I10 - ESSENTIAL (PRIMARY) HYPERTENSION Status: Acute Current Visit: Yes (11) Dementia SNOMED Code(s): 90659116 ICD Code: F03.90 - UNSPECIFIED DEMENTIA WITHOUT BEHAVIORAL DISTURBANCE Status: Acute Current Visit: Yes (12) Renal insufficiency SNOMED Code(s): 763183880, 448681507 ICD Code: N28.9 - DISORDER OF KIDNEY AND URETER, UNSPECIFIED Status: Acute Current Visit: Yes (13) Balance disorder SNOMED Code(s): 701730742 ICD Code: R26.89 - OTHER ABNORMALITIES OF GAIT AND MOBILITY Status: Acute Current Visit: Yes (14) Restless leg syndrome SNOMED Code(s): 93408929 ICD Code: G25.81 - RESTLESS LEGS SYNDROME Status: Acute Current Visit: Yes (15) A-fib SNOMED Code(s): 74652710 ICD Code: I48.91 - UNSPECIFIED ATRIAL FIBRILLATION Status: Acute Current Visit: Yes (16) Pacemaker SNOMED Code(s): 886592209 ICD Code: Z95.0 - PRESENCE OF CARDIAC PACEMAKER Status: Acute Current Visit: Yes (17) Depression SNOMED Code(s): 64012177 ICD Code: F32.9 - MAJOR DEPRESSIVE DISORDER, SINGLE EPISODE, UNSPECIFIED Status: Acute Current Visit: Yes (18) Acute back pain SNOMED Code(s): 440687356, 136283462 ICD Code: M54.9 - DORSALGIA, UNSPECIFIED Status: Acute Current Visit: Yes Qualifiers: Back pain location: thoracic back pain Back pain laterality: midline Qualified Code(s): M54.6 - Pain in thoracic spine (19) Contusion, chest wall SNOMED Code(s): 18395206 ICD Code: S20.219A - CONTUSION OF UNSPECIFIED FRONT WALL OF THORAX, INIT ENCNTR Status: Acute Current Visit: Yes (20) Fall SNOMED Code(s): 5215843, 967322845 ICD Code: W19.XXXA - UNSPECIFIED FALL, INITIAL ENCOUNTER Status: Acute Current Visit: No (21) Laceration of arm SNOMED Code(s): 210392391 ICD Code: S41.119A - LACERATION W/O FOREIGN BODY OF UNSP UPPER ARM, INIT ENCNTR Status: Acute Current Visit: No Qualifiers: Encounter type: initial encounter Laterality: right Qualified Code(s): S41.111A - Laceration without foreign body of right upper arm, initial encounter (22) Bladder muscle dysfunction - overactive SNOMED Code(s): 585869345 ICD Code: N32.81 - OVERACTIVE BLADDER Status: Chronic Current Visit: No (23) Cerebrovascular disease SNOMED Code(s): 44829970 ICD Code: I67.9 - CEREBROVASCULAR DISEASE, UNSPECIFIED Status: Chronic Current Visit: No (24) Degeneration of lumbar intervertebral disc SNOMED Code(s): 32070378 ICD Code: M51.36 - OTHER INTERVERTEBRAL DISC DEGENERATION, LUMBAR REGION Status: Chronic Current Visit: No Problem List Initiated/Reviewed/Updated: Yes Orders Last 24hrs: Active Orders 24 hr Category Date Time Status Patient Status [ADT] Routine ADT 05/25/18 05:35 Active Bedrest Bathroom Privileges [RC] ASDIRECTED Care 05/25/18 05:35 Active Height and Weight [RC] DAILY Care 05/25/18 05:35 Active Intake and Output [RC] QSHIFT Care 05/25/18 05:37 Active Oxygen Therapy [RC] PRN Care 05/25/18 05:35 Active Pulse Oximetry [RC] CONTINUOUS Care 05/25/18 05:37 Active RT Aerosol Therapy [RC] ASDIRECTED Care 05/25/18 05:39 Active VTE/DVT Education [RC] Per Unit Routine Care 05/25/18 05:35 Active Vital Signs [RC] Q4H Care 05/25/18 05:35 Active OT Evaluation and Treatment [CONS] Routine Cons 05/25/18 05:35 Active PT Evaluation and Treatment [CONS] Routine Cons 05/25/18 05:35 Active Regular Diet [DIET] Diet 05/25/18 Breakfast Active Chest wo Cont [CT] Stat Exams 05/25/18 02:38 Taken CBC W/O DIFF,HEMOGRAM [HEME] AM Lab 05/26/18 05:11 Ordered COMPREHENSIVE METABOLIC PN,CMP [CHEM] AM Lab 05/26/18 05:11 Ordered Acetaminophen [Tylenol] Med 05/25/18 05:35 Active 650 mg PO Q4H PRN Albuterol [Proventil Neb Soln] Med 05/25/18 05:35 Active 2.5 mg NEB Q4H PRN Docusate Sodium/Sennosides [Senna Plus] Med 05/25/18 05:35 Active 1 tab PO BID PRN Ondansetron [Zofran] Med 05/25/18 05:35 Active 4 mg IV Q6H PRN Sodium Chloride 0.9% [Saline Flush] Med 05/25/18 04:56 Active 10 ml FLUSH ASDIRECTED PRN Saline Lock Insert [OM.PC] Routine Oth 05/25/18 04:56 Ordered Resuscitation Status Routine Resus Stat 05/25/18 05:35 Ordered Medication Orders Acetaminophen (Tylenol) 650 mg PO Q4H PRN PRN Reason: Pain (Mild 1-3)/fever Albuterol (Proventil Neb Soln) 2.5 mg NEB Q4H PRN PRN Reason: Shortness Of Breath/wheezing Ondansetron HCl (Zofran) 4 mg IV Q6H PRN PRN Reason: Nausea/Vomiting Senna/Docusate Sodium (Senna Plus) 1 tab PO BID PRN PRN Reason: Constipation Sodium Chloride (Saline Flush) 10 ml FLUSH ASDIRECTED PRN PRN Reason: Keep Vein Open Assessment/Plan Comment:: 77-year-old female complicated past medical history came to the ED with complaining of fall and diagnosed with compression fracture of T6 vertebrae and admitted into the hospital for pain management Patient received fentanyl in the ED, will place her on Dilaudid, Skipwith as needed IV fluids 125 mL per hour normal saline We will get CK levels Patient INR is 1.0 Patient has history of atrial fibrillation will continue Coumadin Diaz in place Sliding-scale insulin for diabetes We'll get UA with the concerns of recent UTI Consulted PT and OT continue all home medications IV fluids 125 mL per hour normal saline CODE STATUS DNR/DNI DVT prophylaxis Coumadin Diet regular diet Diaz in place.
[2018-05-25] MEDS ORDERED: Sodium Chloride 0.9% 1,000 ML IV SCH ×2 (06:15→12:30)
[2018-05-25] MEDS ORDERED: Acetaminophen/HYDROcodone 325-5 MG Tab PO PRN (06:17)
[2018-05-25] MEDS: HYDROmorphone 0.5 MG/0.5 ML Syringe IVPUSH PRN ×2 (06:52→11:24)
[2018-05-25] MEDS ORDERED: Insulin Lispro 100 Units/ML 3 ML Vial SUBCUT SCH (07:30)
[2018-05-25] MEDS: Insulin Aspart 100 Units/ML 3 ML Pen SUBCUT SCH ×2 (09:32→16:39)
[2018-05-25] MEDS: cefTRIAXone 1 GM in Sodium Chloride 0.9% 50 ML IV SCH (13:44)
[2018-05-25] MEDS: Acetaminophen 325 MG Tab PO PRN (20:48)
[2018-05-25] MEDS ORDERED: PRAMIPEXOLE 0.5 MG PO SCH (21:00)
[2018-05-25] MEDS ORDERED: atorvaSTATin 20 MG Tab PO SCH (21:00)
[2018-05-25] MEDS: METOPROLOL TARTRATE 25 MG PO SCH (21:48)
[2018-05-25] MEDS: Warfarin 2.5 MG Tab PO SCH (21:48)
[2018-05-25] MEDS: Gabapentin 300 MG (PTOM) PO SCH (21:51)
[2018-05-26] MEDS: Acetaminophen/HYDROcodone 325-5 MG Tab PO PRN ×2 (00:27→19:21)
[2018-05-26] MEDS: HYDROmorphone 0.5 MG/0.5 ML Syringe IVPUSH PRN (05:20)
[2018-05-26] MEDS ORDERED: Dimethicone 20%/Zinc Oxide 25% 56 GM Spray Bottle TOP PRN (06:55)
[2018-05-26] MEDS: Insulin Aspart 100 Units/ML 3 ML Pen SUBCUT SCH ×4 (07:34→21:28)
[2018-05-26] MEDS ORDERED: Memantine 10 MG Tab PO SCH (09:00)
[2018-05-26] MEDS ORDERED: FLUOXETINE 20 MG PO SCH (09:00)
[2018-05-26] MEDS ORDERED: Ranitidine 150 MG (PTOM) PO SCH (09:00)
[2018-05-26] MEDS ORDERED: Furosemide 20 MG (PTOM) PO SCH (09:00)
[2018-05-26] MEDS: URSODIOL 300 MG PO SCH ×3 (09:10→18:01)
[2018-05-26] MEDS: METOPROLOL TARTRATE 25 MG PO SCH (09:10)
[2018-05-26] MEDS: Gabapentin 300 MG (PTOM) PO SCH (09:12)
--- NOTE | 2018-05-26 11:07 | PCM.PN ---
- General Info Date of Service: 05/26/18 Subjective Update: Ms. Clemente has remained stable since admission, continues to be pleasantly confused secondary to underlying dementia with no significant agitation. Vital signs thus far been stable, she remains on IV Rocephin for urinary tract infection. Urine culture growing gram-negative rods, ID and sensitivities are pending. She is comfortable at rest but experiences significant pain in her back with activity secondary to the underlying compression fracture. Because of her confusion she is unable to provide accurate and specific information concerning symptoms or review of systems. - Patient Data Vitals - Most Recent: Last Vital Signs Temp 98.1 F 05/26/18 07:00 Pulse 80 05/26/18 09:10 Resp 18 05/26/18 07:00 BP 158/78 H 05/26/18 09:10 Pulse Ox 97 05/26/18 08:13 Weight - Most Recent: 177 lb 15.667 oz I&O - Last 24 Hours: Intake & Output 05/25/18 05/26/18 05/26/18 22:59 06:59 14:59 Intake Total 100 1541 60 Balance 100 1541 60 Lab Results Last 24 Hours: Laboratory Results - last 24 hr 05/25/18 05/26/18 05/26/18 Range/Units 13:00 04:36 04:36 WBC 7.0 (4.5-11.0) K/uL RBC 4.28 (3.30-5.50) M/uL Hgb 13.6 (12.0-15.0) g/dL Hct 40.6 (36.0-48.0) % MCV 95 (80-98) fL MCH 32 H (27-31) pg MCHC 34 (32-36) % Plt Count 149 L (150-400) K/uL PT (9.5-12.0) sec INR (0.80-1.20) Sodium 135 L (140-148) mmol/L Potassium 3.5 L (3.6-5.2) mmol/L Chloride 102 (100-108) mmol/L Carbon Dioxide 23 (21-32) mmol/L Anion Gap 13.5 (5.0-14.0) mmol/L BUN 12 (7-18) mg/dL Creatinine 0.8 (0.6-1.0) mg/dL Est Cr Clr Drug Dosing 52.07 mL/min Estimated GFR (MDRD) > 60 (>60) Glucose 219 H (74-106) mg/dL Calcium 8.4 L (8.5-10.1) mg/dL Total Bilirubin 0.9 (0.2-1.0) mg/dL AST 41 H (15-37) U/L ALT 29 (12-78) U/L Alkaline Phosphatase 107 (46-116) U/L Total Protein 6.8 (6.4-8.2) g/dL Albumin 2.7 L (3.4-5.0) g/dL Globulin 4.1 H (2.3-3.5) g/dL Albumin/Globulin Ratio 0.7 L (1.2-2.2) Urine Color Yellow Urine Appearance Cloudy Urine pH 7.0 (4.5-8.0) Ur Specific [place] 1.010 (1.008-1.030) Urine Protein Negative (NEGATIVE) mg/dL Urine Glucose (UA) 1000 H (NEGATIVE) mg/dL Urine Ketones Negative (NEGATIVE) mg/dL Urine Occult Blood Trace (NEGATIVE) Urine Nitrite Negative (NEGATIVE) Urine Bilirubin Negative (NEGATIVE) Urine Urobilinogen Normal (NORMAL) mg/dL Ur Leukocyte Esterase Large (NEGATIVE) Urine RBC 0-5 (0-5) Urine WBC Packed H (0-5) Ur Epithelial Cells Rare Amorphous Sediment Not seen Urine Bacteria Moderate Urine Mucus Not seen 05/26/18 Range/Units 04:36 WBC (4.5-11.0) K/uL RBC (3.30-5.50) M/uL Hgb (12.0-15.0) g/dL Hct (36.0-48.0) % MCV (80-98) fL MCH (27-31) pg MCHC (32-36) % Plt Count (150-400) K/uL PT 11.7 (9.5-12.0) sec INR 1.07 (0.80-1.20) Sodium (140-148) mmol/L Potassium (3.6-5.2) mmol/L Chloride (100-108) mmol/L Carbon Dioxide (21-32) mmol/L Anion Gap (5.0-14.0) mmol/L BUN (7-18) mg/dL Creatinine (0.6-1.0) mg/dL Est Cr Clr Drug Dosing mL/min Estimated GFR (MDRD) (>60) Glucose (74-106) mg/dL Calcium (8.5-10.1) mg/dL Total Bilirubin (0.2-1.0) mg/dL AST (15-37) U/L ALT (12-78) U/L Alkaline Phosphatase (46-116) U/L Total Protein (6.4-8.2) g/dL Albumin (3.4-5.0) g/dL Globulin (2.3-3.5) g/dL Albumin/Globulin Ratio (1.2-2.2) Urine Color Urine Appearance Urine pH (4.5-8.0) Ur Specific [place] (1.008-1.030) Urine Protein (NEGATIVE) mg/dL Urine Glucose (UA) (NEGATIVE) mg/dL Urine Ketones (NEGATIVE) mg/dL Urine Occult Blood (NEGATIVE) Urine Nitrite (NEGATIVE) Urine Bilirubin (NEGATIVE) Urine Urobilinogen (NORMAL) mg/dL Ur Leukocyte Esterase (NEGATIVE) Urine RBC (0-5) Urine WBC (0-5) Ur Epithelial Cells Amorphous Sediment Urine Bacteria Urine Mucus Román Results Last 24 Hours: Microbiology 05/25/18 06:25 Urine Culture - Preliminary Urine, Catheterized Med Orders - Current: Current Medications Acetaminophen (Tylenol) 650 mg PO Q4H PRN PRN Reason: Pain (Mild 1-3)/fever Last Admin: 05/25/18 20:48 Dose: 650 mg Hydrocodone Bitart/Acetaminophen ([place] 325-5 Mg) 1 tab PO Q4H PRN PRN Reason: Pain (moderate 4-6) Last Admin: 05/26/18 00:27 Dose: 1 tab Albuterol (Proventil Neb Soln) 2.5 mg NEB Q4H PRN PRN Reason: Shortness Of Breath/wheezing Dimethicone/Zinc Oxide (Rash Relief-Zinc Oxide [place]) 0 gm TOP ASDIRECTED PRN PRN Reason: Rash Fluoxetine HCl (Prozac) 60 mg PO DAILY [facility] Last Admin: 05/26/18 09:12 Dose: 60 mg Furosemide (Lasix) 20 mg PO DAILY [facility] Last Admin: 05/26/18 09:10 Dose: 20 mg Gabapentin (Neurontin) 900 mg PO TID [facility] Gabapentin (Neurontin) 300 mg PO TID [facility] Hydromorphone HCl (Dilaudid) 0.25 mg IVPUSH Q4H PRN PRN Reason: Pain (moderate 4-6) Last Admin: 05/26/18 05:20 Dose: 0.25 mg Sodium Chloride (Normal Saline) 1,000 mls @ 50 mls/hr IV ASDIRECTED [facility] Last Admin: 05/25/18 17:49 Dose: 50 mls/hr Ceftriaxone Sodium 1 gm/ (Sodium Chloride) 50 mls @ 100 mls/hr IV Q24H [facility] Last Admin: 05/25/18 13:44 Dose: 100 mls/hr Insulin Aspart (Novolog) 0 unit SUBCUT BIDAC [facility]; Protocol Last Admin: 05/26/18 07:34 Dose: 1 unit Lactobacillus Rhamnosus (Culturelle) 1 cap PO BID [facility] Melatonin (Melatonin) 9 mg PO BEDTIME [facility] Memantine (Namenda) 10 mg PO BEDTIME [facility] Metoprolol Tartrate (Lopressor) 25 mg PO BID [facility] Last Admin: 05/26/18 09:10 Dose: 25 mg Ondansetron HCl (Zofran) 4 mg IV Q6H PRN PRN Reason: Nausea/Vomiting Last Admin: 05/26/18 05:20 Dose: 4 mg Atorvastatin 40mg ( (Ptom)) 0 each PO BEDTIME [facility] Pramipexole Dihydrochloride (Mirapex) 0.5 mg PO BEDTIME [facility] Last Admin: 05/25/18 21:48 Dose: 0.5 mg Ranitidine HCl (Zantac) 150 mg PO DAILY [facility] Senna/Docusate Sodium (Senna Plus) 1 tab PO BID PRN PRN Reason: Constipation Sodium Chloride (Saline Flush) 10 ml FLUSH ASDIRECTED PRN PRN Reason: Keep Vein Open Ursodiol (Actigal) 300 mg PO BIDMEALS [facility] Last Admin: 05/26/18 09:10 Dose: 300 mg Warfarin Sodium (Coumadin) 2.5 mg PO DAILY@1300 [facility] Last Admin: 05/25/18 21:48 Dose: 2.5 mg Discontinued Medications Hydrocodone Bitart/Acetaminophen ([place] 325-5 Mg) 1 tab PO Q6H PRN PRN Reason: Pain (moderate 4-6) Atorvastatin Calcium (Lipitor) 40 mg PO BEDTIME [facility] Last Admin: 05/25/18 21:51 Dose: Not Given Fentanyl (Sublimaze) 50 mcg IM ONETIME ONE Stop: 05/25/18 02:57 Last Admin: 05/25/18 03:03 Dose: 50 mcg Gabapentin (Neurontin) 300 mg PO TID [facility] Last Admin: 05/26/18 09:12 Dose: 300 mg Hydromorphone HCl (Dilaudid) 0.5 mg IVPUSH Q4H PRN PRN Reason: Pain (moderate 4-6) Last Admin: 05/25/18 11:24 Dose: 0.5 mg Sodium Chloride (Normal Saline) 1,000 mls @ 125 mls/hr IV ASDIRECTED [facility] Last Admin: 05/25/18 06:51 Dose: 125 mls/hr Memantine (Namenda) 10 mg PO DAILY [facility] Ranitidine HCl (Zantac) 150 mg PO BID [facility] Last Admin: 05/26/18 09:13 Dose: 150 mg - Exam Quality Assessment: DVT Prophylaxis General: Alert, Cooperative, Moderate Distress Lungs: Clear to Auscultation, Normal Respiratory Effort Cardiovascular: Regular Rate, Regular Rhythm, No Murmurs GI/Abdominal Exam: Soft, Non-Tender, No Organomegaly, No Distention Extremities: Non-Tender, No Pedal Edema Skin: Warm, Dry, Intact - Problem List Review Problem List Initiated/Reviewed/Updated: Yes - My Orders Last 24 Hours: My Active Orders 05/25/18 10:49 Up to Chair [RC] QID 05/25/18 10:50 RT Incentive Spirometry [RC] Q1HWA 05/25/18 12:19 Acetaminophen/HYDROcodone [[place] 325-5 MG] 1 tab PO Q4H PRN 05/25/18 12:21 HYDROmorphone [Dilaudid] 0.25 mg IVPUSH Q4H PRN 05/25/18 12:30 Sodium Chloride 0.9% [Normal Saline] 1,000 ml IV ASDIRECTED 05/25/18 13:00 UA W/MICROSCOPIC [URIN] Routine 05/25/18 14:00 cefTRIAXone [Rocephin] 1 gm Sodium Chloride 0.9% [Normal Saline] 50 ml IV Q24H 05/25/18 20:00 Warfarin [Coumadin] 2.5 mg PO DAILY@1300 05/25/18 21:00 Metoprolol Tartrate [Lopressor] 25 mg PO BID Pramipexole [Mirapex] 0.5 mg PO BEDTIME 05/25/18 Lunch Consistent Carbohydrate Diet [DIET] 05/26/18 06:55 Dimethicone/Zinc Oxide [Rash Relief-Zinc Oxide [place]] 0 gm TOP ASDIRECTED PRN 05/26/18 08:00 Ursodiol [Actigal] 300 mg PO BIDMEALS 05/26/18 09:00 FLUoxetine [PROzac] 60 mg PO DAILY Furosemide [Lasix] 20 mg PO DAILY 05/26/18 10:49 Patient Status [ADT] Routine 05/26/18 10:55 POTASSIUM,K [CHEM] Timed 05/26/18 11:00 Insulin Aspart [NovoLOG] See Protocol SUBCUT QIDACANDBED Lactobacillus Rhamnosus GG [Culturelle] 1 cap PO BID 05/26/18 14:00 Gabapentin [Neurontin] 300 mg PO TID Gabapentin [Neurontin] 900 mg PO TID 05/26/18 21:00 Melatonin 9 mg PO BEDTIME Memantine [Namenda] 10 mg PO BEDTIME Patient's Own Medication [Ptom] 0 each PO BEDTIME 05/27/18 05:00 INR,PT,PROTHROMBIN TIME [COAG] Timed 05/27/18 09:00 Ranitidine [Zantac] 150 mg PO DAILY - Plan Plan:: ASSESSMENT AND PLAN T6 SPINAL COMPRESSION FRACTURE-pain is well controlled at rest but increases significantly with activity -Saline lock IV -Pain medication as needed -Will likely require longterm placement he cause of difficulty with transfers and ambulation -PT and OT consults URINARY TRACT INFECTION -Culture growing gram-positive cocci, final ID and sensitivities pending -Continue IV Rocephin pending culture results TYPE 2 DIABETES MELLITUS -Moderate dose sliding scale NovoLog -4 times a day glucometers ORAL ANTICOAGULATION WITH WARFARIN-secondary to atrial fibrillation, INR this morning is subtherapeutic -Continue usual outpatient dosing of warfarin -INR in a.m. MAINTENANCE ISSUES -DVT prophylaxis; Lovenox until INR is therapeutic -GI prophylaxis; not indicated -Nutrition; regular diet CODE STATUS; DNR/DNI ADMISSION STATUS; because of ongoing back pain and management of urinary tract infection she will be changed to inpatient status, expect at least a 2 night hospital stay for ongoing evaluation and management of these problems. DISPOSITION; anticipate discharge to longterm because of ongoing back pain and difficulty with transfers and ambulation PRIMARY CARE PROVIDER-Dr. Millan
[2018-05-26] MEDS: Lactobacillus Rhamnosus GG (Probiotic) Cap PO SCH ×2 (11:28→21:26)
[2018-05-26] MEDS: Enoxaparin 40 MG/0.4 ML Syringe SUBCUT SCH (11:30)
[2018-05-26] MEDS: Warfarin 2.5 MG Tab PO SCH (12:46)
[2018-05-26] MEDS: cefTRIAXone 1 GM in Sodium Chloride 0.9% 50 ML IV SCH (13:54)
[2018-05-26] MEDS: Gabapentin 300 MG Cap PO SCH ×2 (13:55→20:15)
[2018-05-26] MEDS ORDERED: GABAPENTIN 600 MG PO SCH (14:00)
[2018-05-26] MEDS ORDERED: Gabapentin 300 MG Cap PO SCH (14:00)
[2018-05-26] MEDS ORDERED: Gabapentin 300 MG (PTOM) PO SCH ×2 (14:00)
[2018-05-26] MEDS ORDERED: ATORVASTATIN 40MG (PTOM) PO SCH (21:00)
[2018-05-26] MEDS ORDERED: MEMANTINE 10 MG PO SCH (21:00)
[2018-05-26] MEDS: Metoprolol Tartrate 25 MG Tab PO SCH (21:27)
[2018-05-26] MEDS: Pramipexole 0.5 MG Tab PO SCH (21:27)
[2018-05-26] MEDS: Melatonin 3 MG Tab PO SCH (21:27)
[2018-05-26] MEDS: atorvaSTATin 20 MG Tab PO SCH (21:27)
[2018-05-26] MEDS: Memantine 10 MG Tab PO SCH (21:28)
[2018-05-27] MEDS: HYDROmorphone 0.5 MG/0.5 ML Syringe IVPUSH PRN (02:15)
[2018-05-27] MEDS: URSODIOL 300 MG PO SCH ×2 (08:25→17:38)
[2018-05-27] MEDS: Gabapentin 300 MG Cap PO SCH ×3 (08:28→20:48)
[2018-05-27] MEDS: FLUoxetine 20 MG Cap PO SCH (08:28)
[2018-05-27] MEDS: Enoxaparin 40 MG/0.4 ML Syringe SUBCUT SCH (08:28)
[2018-05-27] MEDS: Lactobacillus Rhamnosus GG (Probiotic) Cap PO SCH ×2 (08:29→20:48)
[2018-05-27] MEDS: Metoprolol Tartrate 25 MG Tab PO SCH ×2 (08:29→20:49)
[2018-05-27] MEDS: Insulin Aspart 100 Units/ML 3 ML Pen SUBCUT SCH ×4 (08:30→20:53)
[2018-05-27] MEDS: Furosemide 20 MG Tab PO SCH (08:30)
[2018-05-27] MEDS ORDERED: Ranitidine 150 MG (PTOM) PO SCH (09:00)
[2018-05-27] MEDS ORDERED: Potassium Chloride 20 MEQ Tab.ER PO ONE (09:30)
[2018-05-27] MEDS ORDERED: Warfarin 2.5 MG Tab PO ONE (10:30)
--- NOTE | 2018-05-27 10:32 | PCM.PN ---
- General Info Date of Service: 05/27/18 Functional Status: Reports: Pain Controlled, Tolerating Diet - Review of Systems General: Denies: Fever Musculoskeletal: Denies: Back Pain Systems Review Comment:: There were no acute events overnight. Patient remains confused because of her dementia but there have been no behavior issues. This morning she does not report any pain in her back. She was able to transfer from the bed to the chair with minimal assistance. She is not complaining of any abdominal pain or nausea. Her urine culture did grow out Escherichia coli. - Patient Data Vitals - Most Recent: Last Vital Signs Temp 36.2 C 05/27/18 07:00 Pulse 70 05/27/18 08:29 Resp 16 05/27/18 07:00 BP 135/70 05/27/18 08:29 Pulse Ox 93 L 05/27/18 07:16 Weight - Most Recent: 66.587 kg Lab Results Last 24 Hours: Laboratory Results - last 24 hr 05/25/18 05/26/18 05/27/18 Range/Units 06:11 11:24 05:00 PT 11.5 (9.5-12.0) sec INR 1.05 (0.80-1.20) Potassium 3.5 L (3.6-5.2) mmol/L Creatine Kinase 68 (26-192) U/L 05/27/18 Range/Units 05:00 PT (9.5-12.0) sec INR (0.80-1.20) Potassium 3.4 L (3.6-5.2) mmol/L Creatine Kinase (26-192) U/L Román Results Last 24 Hours: Microbiology 05/25/18 06:25 Urine Culture - Final Urine, Catheterized Escherichia Coli Med Orders - Current: Current Medications Acetaminophen (Tylenol) 650 mg PO Q4H PRN PRN Reason: Pain (Mild 1-3)/fever Last Admin: 05/25/18 20:48 Dose: 650 mg Hydrocodone Bitart/Acetaminophen ([place] 325-5 Mg) 1 tab PO Q4H PRN PRN Reason: Pain (moderate 4-6) Last Admin: 05/26/18 19:21 Dose: 1 tab Albuterol (Proventil Neb Soln) 2.5 mg NEB Q4H PRN PRN Reason: Shortness Of Breath/wheezing Atorvastatin Calcium (Lipitor) 40 mg PO BEDTIME [facility] Last Admin: 05/26/18 21:27 Dose: Not Given Dimethicone/Zinc Oxide (Rash Relief-Zinc Oxide [place]) 0 gm TOP ASDIRECTED PRN PRN Reason: Rash Last Admin: 05/26/18 19:22 Dose: 1 applic Enoxaparin Sodium (Lovenox) 40 mg SUBCUT DAILY [facility] Last Admin: 05/27/18 08:28 Dose: 40 mg Fluoxetine HCl (Prozac) 60 mg PO DAILY [facility] Last Admin: 05/27/18 08:28 Dose: 60 mg Furosemide (Lasix) 20 mg PO DAILY [facility] Last Admin: 05/27/18 08:30 Dose: 20 mg Gabapentin (Neurontin) 300 mg PO TID [facility] Last Admin: 05/27/18 08:28 Dose: 300 mg Hydromorphone HCl (Dilaudid) 0.25 mg IVPUSH Q4H PRN PRN Reason: Pain (moderate 4-6) Last Admin: 05/27/18 02:15 Dose: 0.25 mg Insulin Aspart (Novolog) 0 unit SUBCUT QIDACANDBED [facility]; Protocol Last Admin: 05/27/18 08:30 Dose: 4 units Lactobacillus Rhamnosus (Culturelle) 1 cap PO BID [facility] Last Admin: 05/27/18 08:29 Dose: 1 cap Melatonin (Melatonin) 9 mg PO BEDTIME [facility] Last Admin: 05/26/18 21:27 Dose: Not Given Memantine (Namenda) 10 mg PO BEDTIME [facility] Last Admin: 05/26/18 21:28 Dose: Not Given Metoprolol Tartrate (Lopressor) 25 mg PO BID [facility] Last Admin: 05/27/18 08:29 Dose: 25 mg Ondansetron HCl (Zofran) 4 mg IV Q6H PRN PRN Reason: Nausea/Vomiting Last Admin: 05/26/18 05:20 Dose: 4 mg Pramipexole Dihydrochloride (Mirapex) 0.5 mg PO BEDTIME [facility] Last Admin: 05/26/18 21:27 Dose: Not Given Ranitidine HCl (Zantac) 150 mg PO DAILY [facility] Last Admin: 05/27/18 08:29 Dose: 150 mg Senna/Docusate Sodium (Senna Plus) 1 tab PO BID PRN PRN Reason: Constipation Last Admin: 05/26/18 19:21 Dose: 1 tab Sodium Chloride (Saline Flush) 10 ml FLUSH ASDIRECTED PRN PRN Reason: Keep Vein Open Ursodiol (Actigal) 300 mg PO BIDMEALS [facility] Last Admin: 05/27/18 08:25 Dose: 300 mg Warfarin Sodium (Coumadin) 2.5 mg PO DAILY@1300 [facility] Last Admin: 05/26/18 12:46 Dose: 2.5 mg Discontinued Medications Hydrocodone Bitart/Acetaminophen ([place] 325-5 Mg) 1 tab PO Q6H PRN PRN Reason: Pain (moderate 4-6) Atorvastatin Calcium (Lipitor) 40 mg PO BEDTIME [facility] Last Admin: 05/25/18 21:51 Dose: Not Given Fentanyl (Sublimaze) 50 mcg IM ONETIME ONE Stop: 05/25/18 02:57 Last Admin: 05/25/18 03:03 Dose: 50 mcg Fluoxetine HCl (Prozac) 60 mg PO DAILY [facility] Last Admin: 05/26/18 09:12 Dose: 60 mg Furosemide (Lasix) 20 mg PO DAILY [facility] Last Admin: 05/26/18 09:10 Dose: 20 mg Gabapentin (Neurontin) 300 mg PO TID [facility] Last Admin: 05/26/18 09:12 Dose: 300 mg Gabapentin (Neurontin) 300 mg PO TID [facility] Gabapentin (Neurontin) 300 mg PO TID [facility] Gabapentin (Neurontin) 900 mg PO TID [facility] Last Admin: 05/26/18 20:15 Dose: Not Given Hydromorphone HCl (Dilaudid) 0.5 mg IVPUSH Q4H PRN PRN Reason: Pain (moderate 4-6) Last Admin: 05/25/18 11:24 Dose: 0.5 mg Sodium Chloride (Normal Saline) 1,000 mls @ 125 mls/hr IV ASDIRECTED [facility] Last Admin: 05/25/18 06:51 Dose: 125 mls/hr Sodium Chloride (Normal Saline) 1,000 mls @ 50 mls/hr IV ASDIRECTED [facility] Last Admin: 05/25/18 17:49 Dose: 50 mls/hr Ceftriaxone Sodium 1 gm/ (Sodium Chloride) 50 mls @ 100 mls/hr IV Q24H [facility] Last Admin: 05/26/18 13:54 Dose: 100 mls/hr Insulin Aspart (Novolog) 0 unit SUBCUT BIDAC [facility]; Protocol Last Admin: 05/26/18 07:34 Dose: 1 unit Memantine (Namenda) 10 mg PO DAILY [facility] Memantine (Namenda) 10 mg PO BEDTIME [facility] Metoprolol Tartrate (Lopressor) 25 mg PO BID [facility] Last Admin: 05/26/18 09:10 Dose: 25 mg Atorvastatin 40mg ( (Ptom)) 0 each PO BEDTIME [facility] Potassium Chloride (Klor-Con M20) 40 meq PO ONETIME ONE Stop: 05/27/18 09:31 Last Admin: 05/27/18 10:04 Dose: 40 meq Pramipexole Dihydrochloride (Mirapex) 0.5 mg PO BEDTIME [facility] Last Admin: 05/25/18 21:48 Dose: 0.5 mg Ranitidine HCl (Zantac) 150 mg PO BID [facility] Last Admin: 05/26/18 09:13 Dose: 150 mg Ranitidine HCl (Zantac) 150 mg PO DAILY [facility] - Exam Quality Assessment: No: Supplemental Oxygen General: Alert, Cooperative, No Acute Distress. No: Oriented Neck: Supple Lungs: Normal Respiratory Effort GI/Abdominal Exam: No Distention Extremities: No Pedal Edema Psy/Mental Status: Alert, Normal Affect. No: Anxious - Problem List Review Problem List Initiated/Reviewed/Updated: Yes - My Orders Last 24 Hours: My Active Orders 05/27/18 10:30 Warfarin [Coumadin] 5 mg PO ONETIME ONE 05/27/18 21:00 Cephalexin [Keflex] 500 mg PO BID - Plan Plan:: ASSESSMENT AND PLAN T6 SPINAL COMPRESSION FRACTURE - pain is well controlled at this time. -Saline lock IV -Pain medication as needed -Will require [facility] placement because of difficulty with transfers and ambulation -PT and OT consults URINARY TRACT INFECTION - culture growing Escherichia coli and will be transitioned to oral antibiotics. -Change antibiotics to cephalexin TYPE 2 DIABETES MELLITUS - sugars are well-controlled. -Moderate dose sliding scale NovoLog -4 times a day glucometers ORAL ANTICOAGULATION WITH WARFARIN - secondary to atrial fibrillation, INR this morning remains subtherapeutic. -Increased dose of warfarin today -INR in a.m. MAINTENANCE ISSUES -DVT prophylaxis; enoxaparin until INR is therapeutic -GI prophylaxis; not indicated -Nutrition; regular diet DISPOSITION - anticipate discharge to [facility] because of ongoing back pain and difficulty with transfers and ambulation Graham Guevara M.D.
[2018-05-27] MEDS: Acetaminophen/HYDROcodone 325-5 MG Tab PO PRN ×2 (12:17→16:27)
[2018-05-27] MEDS: Melatonin 3 MG Tab PO SCH (20:48)
[2018-05-27] MEDS: Cephalexin 250 MG Cap PO SCH (20:48)
[2018-05-27] MEDS: Pramipexole 0.5 MG Tab PO SCH (20:48)
[2018-05-27] MEDS: Memantine 10 MG Tab PO SCH (20:49)
[2018-05-27] MEDS: atorvaSTATin 20 MG Tab PO SCH (20:49)
[2018-05-28] MEDS: Acetaminophen 325 MG Tab PO PRN (07:38)
[2018-05-28] MEDS: Insulin Aspart 100 Units/ML 3 ML Pen SUBCUT SCH ×4 (08:49→20:47)
[2018-05-28] MEDS: Lactobacillus Rhamnosus GG (Probiotic) Cap PO SCH ×3 (08:50→21:16)
[2018-05-28] MEDS: Gabapentin 300 MG Cap PO SCH ×4 (08:50→21:16)
[2018-05-28] MEDS: FLUoxetine 20 MG Cap PO SCH (08:50)
[2018-05-28] MEDS: Enoxaparin 40 MG/0.4 ML Syringe SUBCUT SCH (08:50)
[2018-05-28] MEDS: Cephalexin 250 MG Cap PO SCH ×3 (08:50→21:16)
[2018-05-28] MEDS: Furosemide 20 MG Tab PO SCH (08:51)
[2018-05-28] MEDS: Metoprolol Tartrate 25 MG Tab PO SCH ×3 (08:51→21:17)
[2018-05-28] MEDS: URSODIOL 300 MG PO SCH ×2 (08:52→16:48)
[2018-05-28] MEDS ORDERED: traMADol 50 MG Tab PO PRN (09:48)
--- NOTE | 2018-05-28 09:49 | PCM.PN ---
- General Info Date of Service: 05/28/18 Functional Status: Reports: Tolerating Diet. Denies: Pain Controlled - Review of Systems General: Reports: Weakness Musculoskeletal: Reports: Back Pain Systems Review Comment:: There were no acute events overnight. There have been no behavior issues. Patient reports more difficulty with pain overnight, especially with activity. She has been using as needed pain medications sporadically likely a complication of her dementia. She has not had fevers. Seems to be comfortable when she's in better sitting in the chair but her long-term stay in one position leads to increased pain. Tolerating oral antibiotics. - Patient Data Vitals - Most Recent: Last Vital Signs Temp 36.3 C 05/28/18 07:19 Pulse 60 05/28/18 08:51 Resp 16 05/28/18 07:19 BP 174/80 H 05/28/18 08:51 Pulse Ox 95 05/28/18 07:19 Weight - Most Recent: 66.587 kg I&O - Last 24 Hours: Intake & Output 05/27/18 05/28/18 05/28/18 22:59 06:59 14:59 Intake Total 450 Balance 450 Román Results Last 24 Hours: Microbiology 05/25/18 06:25 Urine Culture - Final Urine, Catheterized Escherichia Coli Med Orders - Current: Current Medications Acetaminophen (Tylenol) 650 mg PO Q4H PRN PRN Reason: Pain (Mild 1-3)/fever Last Admin: 05/28/18 07:38 Dose: 650 mg Hydrocodone Bitart/Acetaminophen ([place] 325-5 Mg) 1 tab PO Q4H PRN PRN Reason: Pain (moderate 4-6) Last Admin: 05/27/18 16:27 Dose: 1 tab Albuterol (Proventil Neb Soln) 2.5 mg NEB Q4H PRN PRN Reason: Shortness Of Breath/wheezing Atorvastatin Calcium (Lipitor) 40 mg PO BEDTIME [place] Last Admin: 05/27/18 20:49 Dose: 40 mg Cephalexin (Keflex) 500 mg PO BID [place] Last Admin: 05/28/18 08:50 Dose: 500 mg Dimethicone/Zinc Oxide (Rash Relief-Zinc Oxide [place]) 0 gm TOP ASDIRECTED PRN PRN Reason: Rash Last Admin: 05/26/18 19:22 Dose: 1 applic Enoxaparin Sodium (Lovenox) 40 mg SUBCUT DAILY [facility] Last Admin: 05/28/18 08:50 Dose: 40 mg Fluoxetine HCl (Prozac) 60 mg PO DAILY [facility] Last Admin: 05/28/18 08:50 Dose: 60 mg Furosemide (Lasix) 20 mg PO DAILY [facility] Last Admin: 05/28/18 08:51 Dose: 20 mg Gabapentin (Neurontin) 300 mg PO TID [facility] Last Admin: 05/28/18 08:50 Dose: 300 mg Hydromorphone HCl (Dilaudid) 0.25 mg IVPUSH Q4H PRN PRN Reason: Pain (moderate 4-6) Last Admin: 05/27/18 02:15 Dose: 0.25 mg Insulin Aspart (Novolog) 0 unit SUBCUT QIDACANDBED [facility]; Protocol Last Admin: 05/28/18 08:49 Dose: 2 units Lactobacillus Rhamnosus (Culturelle) 1 cap PO BID [facility] Last Admin: 05/28/18 08:50 Dose: 1 cap Melatonin (Melatonin) 9 mg PO BEDTIME [facility] Last Admin: 05/27/18 20:48 Dose: 9 mg Memantine (Namenda) 10 mg PO BEDTIME [facility] Last Admin: 05/27/18 20:49 Dose: 10 mg Metoprolol Tartrate (Lopressor) 25 mg PO BID [facility] Last Admin: 05/28/18 08:51 Dose: 25 mg Ondansetron HCl (Zofran) 4 mg IV Q6H PRN PRN Reason: Nausea/Vomiting Last Admin: 05/26/18 05:20 Dose: 4 mg Pramipexole Dihydrochloride (Mirapex) 0.5 mg PO BEDTIME [facility] Last Admin: 05/27/18 20:48 Dose: 0.5 mg Ranitidine HCl (Zantac) 150 mg PO DAILY [facility] Last Admin: 05/28/18 08:50 Dose: 150 mg Senna/Docusate Sodium (Senna Plus) 1 tab PO BID PRN PRN Reason: Constipation Last Admin: 05/26/18 19:21 Dose: 1 tab Sodium Chloride (Saline Flush) 10 ml FLUSH ASDIRECTED PRN PRN Reason: Keep Vein Open Ursodiol (Actigal) 300 mg PO BIDMEALS [facility] Last Admin: 05/28/18 08:52 Dose: 300 mg Discontinued Medications Hydrocodone Bitart/Acetaminophen ([place] 325-5 Mg) 1 tab PO Q6H PRN PRN Reason: Pain (moderate 4-6) Atorvastatin Calcium (Lipitor) 40 mg PO BEDTIME [facility] Last Admin: 05/25/18 21:51 Dose: Not Given Fentanyl (Sublimaze) 50 mcg IM ONETIME ONE Stop: 05/25/18 02:57 Last Admin: 05/25/18 03:03 Dose: 50 mcg Fluoxetine HCl (Prozac) 60 mg PO DAILY [facility] Last Admin: 05/26/18 09:12 Dose: 60 mg Furosemide (Lasix) 20 mg PO DAILY [facility] Last Admin: 05/26/18 09:10 Dose: 20 mg Gabapentin (Neurontin) 300 mg PO TID [facility] Last Admin: 05/26/18 09:12 Dose: 300 mg Gabapentin (Neurontin) 300 mg PO TID [place] Gabapentin (Neurontin) 300 mg PO TID [facility] Gabapentin (Neurontin) 900 mg PO TID [facility] Last Admin: 05/26/18 20:15 Dose: Not Given Hydromorphone HCl (Dilaudid) 0.5 mg IVPUSH Q4H PRN PRN Reason: Pain (moderate 4-6) Last Admin: 05/25/18 11:24 Dose: 0.5 mg Sodium Chloride (Normal Saline) 1,000 mls @ 125 mls/hr IV ASDIRECTED [facility] Last Admin: 05/25/18 06:51 Dose: 125 mls/hr Sodium Chloride (Normal Saline) 1,000 mls @ 50 mls/hr IV ASDIRECTED [facility] Last Admin: 05/25/18 17:49 Dose: 50 mls/hr Ceftriaxone Sodium 1 gm/ (Sodium Chloride) 50 mls @ 100 mls/hr IV Q24H [facility] Last Admin: 05/26/18 13:54 Dose: 100 mls/hr Insulin Aspart (Novolog) 0 unit SUBCUT BIDAC [facility]; Protocol Last Admin: 05/26/18 07:34 Dose: 1 unit Memantine (Namenda) 10 mg PO DAILY [facility] Memantine (Namenda) 10 mg PO BEDTIME [facility] Metoprolol Tartrate (Lopressor) 25 mg PO BID [facility] Last Admin: 05/26/18 09:10 Dose: 25 mg Atorvastatin 40mg ( (Ptom)) 0 each PO BEDTIME [facility] Potassium Chloride (Klor-Con M20) 40 meq PO ONETIME ONE Stop: 05/27/18 09:31 Last Admin: 05/27/18 10:04 Dose: 40 meq Pramipexole Dihydrochloride (Mirapex) 0.5 mg PO BEDTIME [facility] Last Admin: 05/25/18 21:48 Dose: 0.5 mg Ranitidine HCl (Zantac) 150 mg PO BID [facility] Last Admin: 05/26/18 09:13 Dose: 150 mg Ranitidine HCl (Zantac) 150 mg PO DAILY [facility] Warfarin Sodium (Coumadin) 2.5 mg PO DAILY@1300 [facility] Last Admin: 05/26/18 12:46 Dose: 2.5 mg Warfarin Sodium (Coumadin) 5 mg PO ONETIME ONE Stop: 05/27/18 10:31 Last Admin: 05/27/18 12:19 Dose: 5 mg - Exam Quality Assessment: No: Supplemental Oxygen General: Alert, Cooperative, No Acute Distress. No: Oriented Neck: Supple Lungs: Normal Respiratory Effort GI/Abdominal Exam: No Distention Back Exam: No: Full Range of Motion, Muscle Spasm, Vertebral Tenderness Extremities: No Pedal Edema Psy/Mental Status: Alert, Normal Affect - Problem List Review Problem List Initiated/Reviewed/Updated: Yes - My Orders Last 24 Hours: My Active Orders 05/27/18 21:00 Cephalexin [Keflex] 500 mg PO BID 05/28/18 09:48 traMADol [Ultram] 50 mg PO Q6H PRN 05/28/18 13:00 Warfarin [Coumadin] 5 mg PO ONETIME ONE 05/28/18 17:00 Insulin NPH/Insulin Reg,Human [NovoLIN 70-30] 10 unit SUBCUT QPM 05/29/18 05:00 INR,PT,PROTHROMBIN TIME [COAG] Timed POTASSIUM,K [CHEM] Timed 05/29/18 07:30 Insulin NPH/Insulin Reg,Human [NovoLIN 70-30] 20 unit SUBCUT ACBREAKFAST - Plan Plan:: ASSESSMENT AND PLAN T6 SPINAL COMPRESSION FRACTURE - pain suboptimally controlled overnight. -Saline lock IV -Scheduled acetaminophen -Lidocaine patch -As needed tramadol -PT and OT consults URINARY TRACT INFECTION - culture growing Escherichia coli and will be transitioned to oral antibiotics. -Continue cephalexin TYPE 2 DIABETES MELLITUS - sugars suboptimally controlled. -Restart 70/30 insulin -Moderate dose sliding scale NovoLog -4 times a day glucometers ORAL ANTICOAGULATION WITH WARFARIN - secondary to atrial fibrillation, INR remains subtherapeutic. -Increased dose of warfarin today -INR in a.m. MAINTENANCE ISSUES -DVT prophylaxis; enoxaparin until INR is therapeutic -GI prophylaxis; not indicated -Nutrition; regular diet DISPOSITION - anticipate discharge to group home because of ongoing back pain and difficulty with transfers and ambulation. I would anticipate that she will be ready for discharge tomorrow. Graham Guevara M.D.
[2018-05-28] MEDS: Lidocaine 5% 700 MG Patch TOP SCH (12:29)
[2018-05-28] MEDS ORDERED: Warfarin 5 MG Tab PO ONE (13:00)
[2018-05-28] MEDS: Acetaminophen 500 MG Tab PO SCH ×3 (13:13→21:17)
[2018-05-28] MEDS ORDERED: Insulin NPH/Insulin Regular,Human 70-30 100 Units/ML 10 ML Vial SUBCUT SCH (17:00)
[2018-05-28] MEDS: atorvaSTATin 20 MG Tab PO SCH (20:30)
[2018-05-28] MEDS: Pramipexole 0.5 MG Tab PO SCH (20:30)
[2018-05-28] MEDS: Melatonin 3 MG Tab PO SCH (20:32)
[2018-05-28] MEDS: Memantine 10 MG Tab PO SCH (20:34)
[2018-05-28] MEDS: HYDROmorphone 0.5 MG/0.5 ML Syringe IVPUSH PRN (21:04)
[2018-05-28] MEDS ORDERED: Ketorolac 30 MG/ML SDV IM ONE (21:17)
[2018-05-29] MEDS ORDERED: Insulin NPH/Insulin Regular,Human 70-30 100 Units/ML 10 ML Vial SUBCUT SCH (07:30)
[2018-05-29] MEDS: Metoprolol Tartrate 25 MG Tab PO SCH (08:12)
[2018-05-29] MEDS: Cephalexin 250 MG Cap PO SCH (08:12)
[2018-05-29] MEDS: Furosemide 20 MG Tab PO SCH (08:12)
[2018-05-29] MEDS: Lidocaine 5% 700 MG Patch TOP SCH (08:12)
[2018-05-29] MEDS: FLUoxetine 20 MG Cap PO SCH (08:12)
[2018-05-29] MEDS: Acetaminophen 500 MG Tab PO SCH ×2 (08:12→14:09)
[2018-05-29] MEDS: Enoxaparin 40 MG/0.4 ML Syringe SUBCUT SCH (08:12)
[2018-05-29] MEDS: Gabapentin 300 MG Cap PO SCH ×2 (08:12→14:09)
[2018-05-29] MEDS: Lactobacillus Rhamnosus GG (Probiotic) Cap PO SCH (08:12)
[2018-05-29] MEDS: URSODIOL 300 MG PO SCH (08:13)
[2018-05-29] MEDS: Insulin Aspart 100 Units/ML 3 ML Pen SUBCUT SCH ×2 (08:27→11:36)
--- NOTE | 2018-05-29 09:04 | PCM.DCSUM1 ---
Discharge Summary - Hospital Course Brief History: 77-year-old female with history of Alzheimer's dementia, insulin- dependent diabetes and chronic atrial fibrillation on warfarin who presented with acute back pain and weakness after a fall at home. She was admitted to the hospital for management of acute cystitis and a T6 compression fracture. Diagnosis: Stroke: No - Discharge Data Discharge Date: 05/29/18 Discharge Disposition: DC/Tfer to SNF 03 Condition: Good - Discharge Diagnosis/Problem(s) (1) Closed T6 spinal fracture SNOMED Code(s): 351398716 ICD Code: S22.059A - UNSP FRACTURE OF T5-T6 VERTEBRA, INIT FOR CLOS FX Status: Acute Current Visit: Yes Qualifiers: Encounter type: initial encounter Fracture morphology: wedge compression Qualified Code(s): S22.050A - Wedge compression fracture of T5-T6 vertebra, initial encounter for closed fracture (2) Acute cystitis with positive culture SNOMED Code(s): 736601629 ICD Code: N30.00 - ACUTE CYSTITIS WITHOUT HEMATURIA Status: Acute Current Visit: Yes (3) Alzheimer's dementia without behavioral disturbance SNOMED Code(s): 25708097 ICD Code: G30.9 - ALZHEIMER'S DISEASE, UNSPECIFIED; F02.80 - DEMENTIA IN OTH DISEASES CLASSD ELSWHR W/O BEHAVRL DISTURB Status: Chronic Current Visit: Yes Qualifiers: Alzheimer's disease onset: late-onset Qualified Code(s): G30.1 - Alzheimer' s disease with late onset; F02.80 - Dementia in other diseases classified elsewhere without behavioral disturbance (4) CKD (chronic kidney disease), stage III SNOMED Code(s): 244276682 ICD Code: N18.3 - CHRONIC KIDNEY DISEASE, STAGE 3 (MODERATE) Status: Chronic Current Visit: Yes (5) A-fib SNOMED Code(s): 45946703 ICD Code: I48.91 - UNSPECIFIED ATRIAL FIBRILLATION Status: Chronic Current Visit: No Qualifiers: Atrial fibrillation type: chronic Qualified Code(s): I48.2 - Chronic atrial fibrillation (6) Diabetes mellitus type 2 SNOMED Code(s): 07787409 ICD Code: E11.9 - TYPE 2 DIABETES MELLITUS WITHOUT COMPLICATIONS Status: Chronic Current Visit: No - Patient Summary/Data Consults: Consultations 05/25/18 05:35 OT Evaluation and Treatment [CONS] Routine Please Evaluate and Treat. OT Reason for Consult: Strengthening This query below is only for informational purposes and is not editable. PT Evaluation and Treatment [CONS] Routine Please Evaluate and Treat. PT Reason for Consult: Strengthening This query below is only for informational purposes and is not editable. Hospital Course: Rosa Elena presented to the emergency room with mid back pain and weakness after a fall at home. Workup in the emergency room was suggestive of a mild compression fracture at T6 as well as a urinary tract infection. She was admitted to the hospital initially under observation status. She was started on antibiotics for the urinary tract infection. She was started on narcotics for the compression fracture. Physical therapy and occupational therapy were consult but unfortunately they were not available on Sunday. On Sunday the day after admission she had increased pain and was transitioned to inpatient status with the idea that pain management and infection management would require a longer hospital stay. By the second day after admission her pain has been improving. She's been able to get in and out of bed with some discomfort but does require the assist of one or 2 people. Her urine culture is growing Escherichia coli which is sensitive to cephalosporins. She was transitioned to oral antibiotics on the second day of hospitalization. Discussions with the family were held about discharge planning. They felt that the alf would be the best location for her to recover from her compression fracture. She has made significant improvement since admission but still requires some assistance and they are concerned that they will not be able to manage her in her current state at home. Referrals for nursing homes were sent on Sunday, the second day of admission. On Sunday, the day before discharge there was acceptance at the alf but the patient had reported increased pain. We elected to alter her pain regimen to include more scheduled medications. There was concern that her dementia limited her ability to ask for as needed medications. She was transitioned to scheduled acetaminophen as well as a lidocaine patch and as needed tramadol. She's responded well to this regimen and is now ready for discharge. She has completed sufficient antibiotics for her urinary tract infection. Her INR at the time of admission was subtherapeutic and has been steadily rising with an increase in her Coumadin dosing from baseline. She has received 5 mg per day for the last 2 days and her INR on the day of discharge is 1.5. she will receive a 5 mg dose on the day of discharge as well. She will return to her usual outpatient dosing of 2.5 mg daily after hospital discharge. She will be discharged to the alf for subacute rehabilitation with physical and occupational therapy. She needs assistance with getting into and out of bed as well as safe ambulation. Vital signs have been stable. Diabetes has been fairly well controlled once her home regimen was reinstituted. - Patient Instructions Diet: Diabetic Diet Activity: As Tolerated Driving: Do Not Drive Showering/Bathing: May Shower Notify Provider of: Fever, Increased Pain, Nausea and/or Vomiting Other/Special Instructions: 1. You were in the hospital for management of a urinary tract infection caused by Escherichia coli as well as a T6 compression fracture that resulted from a fall at home. You have received sufficient antibiotic therapy for the urinary tract infection. We have you on a variety of medications to help improve your compression fracture pain which should continue to improve over the next 2-3 weeks. 2. Accuchecks 4 times daily with meals and at bedtime. 3. Sliding scale insulin instructions, please give 4 times daily with meals and at bedtime -. If blood glucose is: --<150 = no insulin. --150 - 199 = 1 unit. --200 - 249 = 2 units. --250 - 299 = 3 units. --300 - 349 = 4 units. --350 - 400 = 5 units. -->400 = call MD for instructions. 4. Referral to Physical and occupational therapy for strengtheningand endurance training in the setting of a thoracic spinal compression fracture. 5. Code status - DNR/DNI. 6. Coumadin clinic monitoring of INR levels. Diagnosis: Chronic atrial fibrillation. Goal INR 2-3. Next INR level will be due on Sunday. 7. Seek medical attention if you develop fever greater than 101, you have severe pain in your back not controlled by medications or if you develop persistent vomiting or diarrhea. - Discharge Plan *PRESCRIPTION DRUG MONITORING PROGRAM REVIEWED*: Not Applicable *COPY OF PRESCRIPTION DRUG MONITORING REPORT IN PATIENT KASSIDY: Not Applicable Prescriptions/Med Rec: Acetaminophen [Tylenol Extra Strength] 1,000 mg PO TID #180 tablet Insulin Aspart [NovoLOG] 1 unit SUBCUT QIDACANDBED #2 pen Lidocaine 5% [Lidoderm 5%] 700 mg TOP DAILY #30 patch traMADol [Ultram] 50 mg PO Q6H PRN #45 tablet PRN Reason: Pain Warfarin [Coumadin] 2.5 mg PO DAILY #30 tab Home Medications: Home Meds Furosemide [Lasix] 20 mg PO DAILY 08/22/13 [History] Multivitamin with Minerals [Multiple Vitamin] 1 tab PO DAILY 08/22/13 [History] Pramipexole [Mirapex] 0.5 mg PO BEDTIME 03/30/16 [History] Ranitidine [Zantac] 150 mg PO BID 03/30/16 [History] Metoprolol Tartrate [Lopressor] 25 mg PO BID 03/26/17 [History] atorvaSTATin [Lipitor] 40 mg PO BEDTIME 03/26/17 [History] FLUoxetine HCl [Fluoxetine HCl] 60 mg PO DAILY 10/19/17 [History] Gabapentin [Neurontin] 300 mg PO TID 10/19/17 [History] Insulin NPH Hum/Reg Insulin Hm [Novolin 70-30 100 Unit/ml Vial] 10 units SQ QPM 10/19/17 [History] Insulin NPH Hum/Reg Insulin Hm [Novolin 70-30 100 Unit/ml Vial] 23 units SQ ACBREAKFAST 10/19/17 [History] Meclizine [Antivert] 25 mg PO TID PRN 10/19/17 [History] Memantine HCl 10 mg PO DAILY 10/19/17 [History] Ursodiol 300 mg PO BID 10/19/17 [History] Acetaminophen [Tylenol Extra Strength] 1,000 mg PO TID #180 tablet 05/29/18 [Rx] Insulin Aspart [NovoLOG] 1 unit SUBCUT QIDACANDBED #2 pen 05/29/18 [Rx] Lidocaine 5% [Lidoderm 5%] 700 mg TOP DAILY #30 patch 05/29/18 [Rx] Warfarin [Coumadin] 2.5 mg PO DAILY #30 tab 05/29/18 [Rx] traMADol [Ultram] 50 mg PO Q6H PRN #45 tablet 05/29/18 [Rx] Patient Handouts: Urinary Tract Infection, Adult, [id number], Chest Contusion , Adult, [id number] Referrals: Riley Millan MD [Primary Care Provider] - (1-2 weeks - follow-up hospital stay for compression fracture and acute cystitis) - Discharge Summary/Plan Comment DC Time >30 min.: Yes (45 - new alf discharge) - Patient Data Vitals - Most Recent: Last Vital Signs Temp 36.9 C 05/29/18 07:27 Pulse 64 05/29/18 08:12 Resp 16 05/29/18 07:27 BP 168/85 H 05/29/18 08:12 Pulse Ox 97 05/29/18 07:27 Weight - Most Recent: 66.587 kg Lab Results - Last 24 hrs: Laboratory Results - last 24 hr 05/29/18 05/29/18 Range/Units 04:25 04:25 PT 16.4 H (9.5-12.0) sec INR 1.53 H (0.80-1.20) Potassium 4.8 (3.6-5.2) mmol/L Med Orders - Current: Current Medications Acetaminophen (Tylenol Extra Strength) 1,000 mg PO TID [facility] Last Admin: 05/29/18 08:12 Dose: 1,000 mg Albuterol (Proventil Neb Soln) 2.5 mg NEB Q4H PRN PRN Reason: Shortness Of Breath/wheezing Atorvastatin Calcium (Lipitor) 40 mg PO BEDTIME [facility] Last Admin: 05/28/18 20:30 Dose: 40 mg Cephalexin (Keflex) 500 mg PO BID [facility] Last Admin: 05/29/18 08:12 Dose: 500 mg Dimethicone/Zinc Oxide (Rash Relief-Zinc Oxide [place]) 0 gm TOP ASDIRECTED PRN PRN Reason: Rash Last Admin: 05/26/18 19:22 Dose: 1 applic Enoxaparin Sodium (Lovenox) 40 mg SUBCUT DAILY [facility] Last Admin: 05/29/18 08:12 Dose: 40 mg Fluoxetine HCl (Prozac) 60 mg PO DAILY [facility] Last Admin: 05/29/18 08:12 Dose: 60 mg Furosemide (Lasix) 20 mg PO DAILY [facility] Last Admin: 05/29/18 08:12 Dose: 20 mg Gabapentin (Neurontin) 300 mg PO TID [facility] Last Admin: 05/29/18 08:12 Dose: 300 mg Hydromorphone HCl (Dilaudid) 0.25 mg IVPUSH Q4H PRN PRN Reason: Pain (moderate 4-6) Last Admin: 05/28/18 21:04 Dose: 0.25 mg Insulin Aspart (Novolog) 0 unit SUBCUT QIDACANDBED [facility]; Protocol Last Admin: 05/29/18 08:27 Dose: 2 units Insulin Human Isoph/Insulin Regular (Novolin 70-30) 10 unit SUBCUT QPM [facility] Last Admin: 05/28/18 16:46 Dose: 10 units Insulin Human Isoph/Insulin Regular (Novolin 70-30) 20 unit SUBCUT ACBREAKFAST [facility] Last Admin: 05/29/18 08:26 Dose: 20 units Lactobacillus Rhamnosus (Culturelle) 1 cap PO BID [facility] Last Admin: 05/29/18 08:12 Dose: 1 cap Lidocaine (Lidoderm 5%) 700 mg TOP DAILY [facility] Last Admin: 05/29/18 08:12 Dose: 700 mg Melatonin (Melatonin) 9 mg PO BEDTIME [facility] Last Admin: 05/28/18 20:32 Dose: 9 mg Memantine (Namenda) 10 mg PO BEDTIME [facility] Last Admin: 05/28/18 20:34 Dose: 10 mg Metoprolol Tartrate (Lopressor) 25 mg PO BID [facility] Last Admin: 05/29/18 08:12 Dose: 25 mg Miscellaneous Information (Remove Patch) 1 ea TRDERM BEDTIME [facility] Last Admin: 05/28/18 20:34 Dose: Not Given Ondansetron HCl (Zofran) 4 mg IV Q6H PRN PRN Reason: Nausea/Vomiting Last Admin: 05/26/18 05:20 Dose: 4 mg Pramipexole Dihydrochloride (Mirapex) 0.5 mg PO BEDTIME [facility] Last Admin: 05/28/18 20:30 Dose: 0.5 mg Ranitidine HCl (Zantac) 150 mg PO DAILY [facility] Last Admin: 05/29/18 08:12 Dose: 150 mg Senna/Docusate Sodium (Senna Plus) 1 tab PO BID PRN PRN Reason: Constipation Last Admin: 05/26/18 19:21 Dose: 1 tab Sodium Chloride (Saline Flush) 10 ml FLUSH ASDIRECTED PRN PRN Reason: Keep Vein Open Tramadol HCl (Ultram) 50 mg PO Q6H PRN PRN Reason: Pain Ursodiol (Actigal) 300 mg PO BIDMEALS [facility] Last Admin: 05/29/18 08:13 Dose: 300 mg Warfarin Sodium (Coumadin) 5 mg PO ONETIME ONE Stop: 05/29/18 12:01 Discontinued Medications Acetaminophen (Tylenol) 650 mg PO Q4H PRN PRN Reason: Pain (Mild 1-3)/fever Last Admin: 05/28/18 07:38 Dose: 650 mg Hydrocodone Bitart/Acetaminophen ([place] 325-5 Mg) 1 tab PO Q6H PRN PRN Reason: Pain (moderate 4-6) Hydrocodone Bitart/Acetaminophen ([place] 325-5 Mg) 1 tab PO Q4H PRN PRN Reason: Pain (moderate 4-6) Last Admin: 05/27/18 16:27 Dose: 1 tab Atorvastatin Calcium (Lipitor) 40 mg PO BEDTIME [facility] Last Admin: 05/25/18 21:51 Dose: Not Given Fentanyl (Sublimaze) 50 mcg IM ONETIME ONE Stop: 05/25/18 02:57 Last Admin: 05/25/18 03:03 Dose: 50 mcg Fluoxetine HCl (Prozac) 60 mg PO DAILY [facility] Last Admin: 05/26/18 09:12 Dose: 60 mg Furosemide (Lasix) 20 mg PO DAILY [facility] Last Admin: 05/26/18 09:10 Dose: 20 mg Gabapentin (Neurontin) 300 mg PO TID [facility] Last Admin: 05/26/18 09:12 Dose: 300 mg Gabapentin (Neurontin) 300 mg PO TID [place] Gabapentin (Neurontin) 300 mg PO TID [place] Gabapentin (Neurontin) 900 mg PO TID [facility] Last Admin: 05/26/18 20:15 Dose: Not Given Hydromorphone HCl (Dilaudid) 0.5 mg IVPUSH Q4H PRN PRN Reason: Pain (moderate 4-6) Last Admin: 05/25/18 11:24 Dose: 0.5 mg Sodium Chloride (Normal Saline) 1,000 mls @ 125 mls/hr IV ASDIRECTED [facility] Last Admin: 05/25/18 06:51 Dose: 125 mls/hr Sodium Chloride (Normal Saline) 1,000 mls @ 50 mls/hr IV ASDIRECTED [facility] Last Admin: 05/25/18 17:49 Dose: 50 mls/hr Ceftriaxone Sodium 1 gm/ (Sodium Chloride) 50 mls @ 100 mls/hr IV Q24H [facility] Last Admin: 05/26/18 13:54 Dose: 100 mls/hr Insulin Aspart (Novolog) 0 unit SUBCUT BIDAC [facility]; Protocol Last Admin: 05/26/18 07:34 Dose: 1 unit Ketorolac Tromethamine (Toradol) 15 mg IM ONETIME ONE Stop: 05/28/18 21:18 Last Admin: 05/28/18 21:37 Dose: 15 mg Memantine (Namenda) 10 mg PO DAILY [facility] Memantine (Namenda) 10 mg PO BEDTIME [facility] Metoprolol Tartrate (Lopressor) 25 mg PO BID [facility] Last Admin: 05/26/18 09:10 Dose: 25 mg Atorvastatin 40mg ( (Ptom)) 0 each PO BEDTIME [facility] Potassium Chloride (Klor-Con M20) 40 meq PO ONETIME ONE Stop: 05/27/18 09:31 Last Admin: 05/27/18 10:04 Dose: 40 meq Pramipexole Dihydrochloride (Mirapex) 0.5 mg PO BEDTIME [facility] Last Admin: 05/25/18 21:48 Dose: 0.5 mg Ranitidine HCl (Zantac) 150 mg PO BID [facility] Last Admin: 05/26/18 09:13 Dose: 150 mg Ranitidine HCl (Zantac) 150 mg PO DAILY [facility] Warfarin Sodium (Coumadin) 2.5 mg PO DAILY@1300 [facility] Last Admin: 05/26/18 12:46 Dose: 2.5 mg Warfarin Sodium (Coumadin) 5 mg PO ONETIME ONE Stop: 05/27/18 10:31 Last Admin: 05/27/18 12:19 Dose: 5 mg Warfarin Sodium (Coumadin) 5 mg PO ONETIME ONE Stop: 05/28/18 13:01 Last Admin: 05/28/18 12:29 Dose: 5 mg - Exam Quality Assessment: Denies: Supplemental Oxygen General: Reports: Alert, Cooperative, No Acute Distress. Denies: Oriented Neck: Reports: Supple Lungs: Reports: Normal Respiratory Effort Cardiovascular: Reports: Regular Rate, Irregular Rhythm GI/Abdominal Exam: Soft, No Distention Extremities: No Pedal Edema Skin: Reports: Warm, Dry Psy/Mental Status: Reports: Alert, Normal Affect
[2018-05-29 11:11] VITALS: BP 134/74
[2018-05-29] MEDS ORDERED: Warfarin 5 MG Tab PO ONE (12:00)
== END 2018-05-29 16:07 | DRG 552 ==
LOC: JP.ED 02:11 → JP.MS 05:35 → OBSVTOIN 05-26 10:49
PROVIDERS: ADMIT Family Medicine; ATTEND Internal Medicine
DX: S22.050A Wedge compression fracture of T5-T6 vertebra, initial encounter for closed fracture (principal); N30.00 Acute cystitis without hematuria; S20.219A Contusion of unspecified front wall of thorax, initial encounter; M54.6 Pain in thoracic spine; I10 Essential (primary) hypertension; E78.00 Pure hypercholesterolemia, unspecified; H54.7 Unspecified visual loss; D64.9 Anemia, unspecified; G47.30 Sleep apnea, unspecified; E11.40 Type 2 diabetes mellitus with diabetic neuropathy, unspecified; W18.30XA Fall on same level, unspecified, initial encounter; Z88.8 Allergy status to other drugs, medicaments and biological substances; Y92.002 Bathroom of unspecified non-institutional (private) residence as the place of occurrence of the external cause; G30.9 Alzheimer's disease, unspecified; M81.0 Age-related osteoporosis without current pathological fracture; F02.80 Dementia in other diseases classified elsewhere, unspecified severity, without behavioral disturbance, psychotic disturbance, mood disturbance, and anxiety; F41.9 Anxiety disorder, unspecified; B96.20 Unspecified Escherichia coli [E. coli] as the cause of diseases classified elsewhere; Z87.440 Personal history of urinary (tract) infections; I48.2 Chronic atrial fibrillation; S41.111A Laceration without foreign body of right upper arm, initial encounter; Z66 Do not resuscitate; N32.81 Overactive bladder; E03.9 Hypothyroidism, unspecified; E78.5 Hyperlipidemia, unspecified; R29.6 Repeated falls; G25.81 Restless legs syndrome; G47.33 Obstructive sleep apnea (adult) (pediatric); M19.90 Unspecified osteoarthritis, unspecified site; M35.3 Polymyalgia rheumatica; F32.9 Major depressive disorder, single episode, unspecified; Z79.01 Long term (current) use of anticoagulants; I12.9 Hypertensive chronic kidney disease with stage 1 through stage 4 chronic kidney disease, or unspecified chronic kidney disease; E11.22 Type 2 diabetes mellitus with diabetic chronic kidney disease; N18.3 Chronic kidney disease, stage 3 (moderate); Z79.4 Long term (current) use of insulin; Z95.0 Presence of cardiac pacemaker; Z79.899 Other long term (current) drug therapy
CPT/HCPCS: 36415 ×2; 71250; 80053 ×2; 81001; 82550; 82962 ×2; 85025; 85027; 85610 ×2; 87086; 94762; 96361; 96365; 96372; 96375; 97110; 97162; 99285; A9270 ×12; J0696; J1170 ×3; J2405; J3010; J7030 ×2; J7050; 84132; 87088; 87186; 97116-GP; 97165-GO; 97530-GP; J1650; J1885

== ENCOUNTER 2018-06-23 14:20 | Emergency (ER) | payer MEDICARE, BC ==
[2018-06-23 14:42] VITALS: BP 132/74
--- NOTE | 2018-06-23 14:58 | EDM.PDOC ---
ED HPI GENERAL MEDICAL PROBLEM - General Chief Complaint: Upper Extremity Injury/Pain Stated Complaint: CIRCULATION ISSUES WITH ELDER ON L WRIST Time Seen by Provider: 06/23/18 14:51 Source of Information: Reports: Patient, Family, Old Records, RN Notes Reviewed History Limitations: Reports: No Limitations - History of Present Illness INITIAL COMMENTS - FREE TEXT/NARRATIVE: 77-year-old female presents to the emergency department today with complaint of cast discomfort she recently had a couple phalangeal fractures digits 3 and 4 [facility] has been evaluated by orthopedics does have a catheter placed unfortunately the thumb opening is close to the skin she does have a small abrasion on the dorsal aspect of her thumb with some edema around the thumb - Related Data Allergies Allergy/AdvReac Type Severity Reaction Status Date / Time celecoxib [From Celebrex] Allergy Rash Verified 06/23/18 14:33 metformin HCl Allergy Cannot Verified 06/23/18 14:33 [From Glucophage] Remember paroxetine Allergy Cannot Verified 06/23/18 14:33 Remember prednisone Allergy Cannot Verified 06/23/18 14:33 Remember rofecoxib [From Vioxx] Allergy Rash Verified 06/23/18 14:33 Sulfa (Sulfonamide Allergy Cannot Verified 06/23/18 14:33 Antibiotics) Remember sulfasalazine Allergy Cannot Verified 06/23/18 14:33 [From Azulfidine] Remember codeine AdvReac Itching Verified 06/23/18 14:33 cyclobenzaprine AdvReac Itching Verified 06/23/18 14:33 environmental Allergy Cannot Uncoded 06/23/18 14:33 Remember Home Meds: Home Meds Furosemide [Lasix] 20 mg PO DAILY 08/22/13 [History] Multivitamin with Minerals [Multiple Vitamin] 1 tab PO DAILY 08/22/13 [History] Pramipexole [Mirapex] 0.5 mg PO BEDTIME 03/30/16 [History] Ranitidine [Zantac] 150 mg PO BID 03/30/16 [History] Metoprolol Tartrate [Lopressor] 25 mg PO BID 03/26/17 [History] atorvaSTATin [Lipitor] 40 mg PO BEDTIME 03/26/17 [History] FLUoxetine HCl [Fluoxetine HCl] 60 mg PO DAILY 10/19/17 [History] Gabapentin [Neurontin] 300 mg PO TID 10/19/17 [History] Insulin NPH Hum/Reg Insulin Hm [Novolin 70-30 100 Unit/ml Vial] 10 units SQ QPM 10/19/17 [History] Insulin NPH Hum/Reg Insulin Hm [Novolin 70-30 100 Unit/ml Vial] 23 units SQ ACBREAKFAST 10/19/17 [History] Meclizine [Antivert] 25 mg PO TID PRN 10/19/17 [History] Memantine HCl 10 mg PO DAILY 10/19/17 [History] Ursodiol 300 mg PO BID 10/19/17 [History] Acetaminophen [Tylenol Extra Strength] 1,000 mg PO TID #180 tablet 05/29/18 [Rx] Insulin Aspart [NovoLOG] 1 unit SUBCUT QIDACANDBED #2 pen 05/29/18 [Rx] Lidocaine 5% [Lidoderm 5%] 700 mg TOP DAILY #30 patch 05/29/18 [Rx] Warfarin [Coumadin] 2.5 mg PO ASDIRECTED 06/20/18 [History] traMADol [Ultram] 50 mg PO BID 06/20/18 [History] Past Medical History HEENT History: Reports: Cataract, Impaired Vision Cardiovascular History: Reports: High Cholesterol, Hypertension, Other (See Below) Other Cardiovascular History: bradycardia Respiratory History: Reports: Sleep Apnea Gastrointestinal History: Reports: Bowel Obstruction, Colon Polyp, Diverticulosis, Hemorrhoids Genitourinary History: Reports: UTI, Recurrent Other Genitourinary History: OAB 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 -07/2017 B anterior upper rib fractures. -SI joint dysfunction. - Degenerative Lumbar intervetrebral disc. -Balance d/o with recurrent falls ( 2018). -Polymyalgia rheumatica (PMR). -Arthritis noted to affect B feet, chronic back pain, knees (L TKA), L frozen shoulder per daughter Neurological History: Reports: Concussion, Neuropathy, Diabetic, TIA, Other ( See Below) Other Neuro History: dementia Psychiatric History: Reports: Anxiety, Dementia, Depression Endocrine/Metabolic History: Reports: Diabetes, Type II, Osteoporosis Hematologic History: Reports: Anemia, Anticoagulation Therapy Dermatologic History: Reports: Psoriasis - Infectious Disease History Infectious Disease History: Reports: Chicken Pox, Measles Other Infectious Disease History: unknown - Past Surgical History HEENT Surgical History: Reports: Cataract Surgery Cardiovascular Surgical History: Reports: Pacer GI Surgical History: Reports: Appendectomy, Cholecystectomy, Hernia Repair/Other , Other (See Below) Musculoskeletal Surgical History: Reports: Knee Replacement, Other (See Below) Other Musculoskeletal Surgeries/Procedures:: current finger fx Social & Family History - Family History Family Medical History: Noncontributory Neurological: Reports: MS Endocrine/Metabolic: Reports: Diabetes, type II Oncologic: Reports: Bone - Tobacco Use Smoking Status *Q: Never Smoker - Caffeine Use Caffeine Use: Reports: Coffee Other Caffeine Use: unknown Caffeine Use Comment: 8-10 cups/day Review of Systems - Review of Systems Review Of Systems: See Below Constitutional: Reports: No Symptoms Respiratory: Reports: No Symptoms Musculoskeletal: Reports: Hand Pain Skin: Reports: Bruising, Erythema, Other (Edema) Neurological: Reports: No Symptoms ED EXAM, GENERAL - Physical Exam Exam: See Below Free Text/Narrative:: Examination of the left hand cast is in place good capillary refill and distal tips of the fingers however the thumb opening on the cast does rub on the dorsal aspect he does have a small bruise there as well as some edema around the thumb full range of motion all digits Exam Limited By: Physical Impairment General Appearance: Alert, No Apparent Distress Course - Vital Signs Last Recorded V/S: Last Vital Signs Temp 96.6 F 06/23/18 14:40 Pulse 60 06/23/18 14:40 Resp 14 06/23/18 14:40 BP 132/74 06/23/18 14:40 Pulse Ox 92 L 06/23/18 14:40 Departure - Departure Time of Disposition: 15:16 Disposition: DC/[facility]fer to [facility] Condition: Fair Clinical Impression: Cast discomfort - Discharge Information Referrals: Riley Millan MD [Primary Care Provider] - Forms: ED Department Discharge Additional Instructions: Keep your follow-up appointments with orthopedics as scheduled, call return to the emergency department worsening of symptoms - Assessment/Plan Plan: Assessment Acuity = acute Site and laterality = chest discomfort Etiology = fiberglass was pushing on the skin Manifestations = none Location of injury = Home Lab values = none Plan The cast was used to open up the larger area as well as bivalved the cast partially relieve some pressure, she had good relief with this maneuver keep follow-up appointments with orthopedics as scheduled This note was dictated using [employer] voice recognition software please call with any questions on syntax or grammar.
== END 2018-06-23 15:39 ==
LOC: JP.ED 14:20
DX: S62.613D Displaced fracture of proximal phalanx of left middle finger, subsequent encounter for fracture with routine healing (principal); S62.615D Displaced fracture of proximal phalanx of left ring finger, subsequent encounter for fracture with routine healing; Z91.09 Other allergy status, other than to drugs and biological substances; Z88.2 Allergy status to sulfonamides; Z79.4 Long term (current) use of insulin; Z79.899 Other long term (current) drug therapy; I10 Essential (primary) hypertension; E11.40 Type 2 diabetes mellitus with diabetic neuropathy, unspecified; W19.XXXD Unspecified fall, subsequent encounter
CPT/HCPCS: 99284

== ENCOUNTER 2018-06-24 15:50 | Emergency (ER) | payer MEDICARE, BC ==
[2018-06-24 16:23] VITALS: BP 157/79
--- NOTE | 2018-06-24 16:43 | EDM.PDOC ---
ED HPI GENERAL MEDICAL PROBLEM - General Chief Complaint: Neurological Problem Stated Complaint: CANT SEE Time Seen by Provider: 06/24/18 16:20 Source of Information: Reports: Patient, Family History Limitations: Reports: No Limitations - History of Present Illness INITIAL COMMENTS - FREE TEXT/NARRATIVE: 77-year-old patient from [facility] had a 30-40 minutes spell where her eyes were rolled back and she was having trouble following commands. She was conscious but seemed very lethargic. It scared the family, however been she said should she "had to go to the bathroom". They sat her up, her eyes straightened and she seemed fine since but they wanted her looked at. She is now sitting up and talking and feels normal, has no headache, shortness of breath, fever, or other symptoms. Onset: Unknown/Unsure Associated Symptoms: Reports: No Other Symptoms - Related Data Allergies Allergy/AdvReac Type Severity Reaction Status Date / Time celecoxib [From Celebrex] Allergy Rash Verified 06/23/18 14:33 metformin HCl Allergy Cannot Verified 06/23/18 14:33 [From Glucophage] Remember paroxetine Allergy Cannot Verified 06/23/18 14:33 Remember prednisone Allergy Cannot Verified 06/23/18 14:33 Remember rofecoxib [From Vioxx] Allergy Rash Verified 06/23/18 14:33 Sulfa (Sulfonamide Allergy Cannot Verified 06/23/18 14:33 Antibiotics) Remember sulfasalazine Allergy Cannot Verified 06/23/18 14:33 [From Azulfidine] Remember codeine AdvReac Itching Verified 06/23/18 14:33 cyclobenzaprine AdvReac Itching Verified 06/23/18 14:33 environmental Allergy Cannot Uncoded 06/23/18 14:33 Remember Home Meds: Home Meds Furosemide [Lasix] 20 mg PO DAILY 08/22/13 [History] Multivitamin with Minerals [Multiple Vitamin] 1 tab PO DAILY 08/22/13 [History] Pramipexole [Mirapex] 0.5 mg PO BEDTIME 03/30/16 [History] Ranitidine [Zantac] 150 mg PO BID 03/30/16 [History] Metoprolol Tartrate [Lopressor] 25 mg PO BID 03/26/17 [History] atorvaSTATin [Lipitor] 40 mg PO BEDTIME 03/26/17 [History] FLUoxetine HCl [Fluoxetine HCl] 60 mg PO DAILY 10/19/17 [History] Gabapentin [Neurontin] 300 mg PO TID 10/19/17 [History] Insulin NPH Hum/Reg Insulin Hm [Novolin 70-30 100 Unit/ml Vial] 10 units SQ QPM 10/19/17 [History] Insulin NPH Hum/Reg Insulin Hm [Novolin 70-30 100 Unit/ml Vial] 23 units SQ ACBREAKFAST 10/19/17 [History] Meclizine [Antivert] 25 mg PO TID PRN 10/19/17 [History] Memantine HCl 10 mg PO DAILY 10/19/17 [History] Ursodiol 300 mg PO BID 10/19/17 [History] Acetaminophen [Tylenol Extra Strength] 1,000 mg PO TID #180 tablet 05/29/18 [Rx] Insulin Aspart [NovoLOG] 1 unit SUBCUT QIDACANDBED #2 pen 05/29/18 [Rx] Lidocaine 5% [Lidoderm 5%] 700 mg TOP DAILY #30 patch 05/29/18 [Rx] Warfarin [Coumadin] 2.5 mg PO ASDIRECTED 06/20/18 [History] traMADol [Ultram] 50 mg PO BID 06/20/18 [History] Past Medical History HEENT History: Reports: Cataract, Impaired Vision Cardiovascular History: Reports: High Cholesterol, Hypertension, Other (See Below) Other Cardiovascular History: bradycardia Respiratory History: Reports: Sleep Apnea Gastrointestinal History: Reports: Bowel Obstruction, Colon Polyp, Diverticulosis, Hemorrhoids Genitourinary History: Reports: UTI, Recurrent Other Genitourinary History: OAB 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 -07/2017 B anterior upper rib fractures. -SI joint dysfunction. - Degenerative Lumbar intervetrebral disc. -Balance d/o with recurrent falls ( 2018). -Polymyalgia rheumatica (PMR). -Arthritis noted to affect B feet, chronic back pain, knees (L TKA), L frozen shoulder per daughter Neurological History: Reports: Concussion, Neuropathy, Diabetic, TIA, Other ( See Below) Other Neuro History: dementia Psychiatric History: Reports: Anxiety, Dementia, Depression Endocrine/Metabolic History: Reports: Diabetes, Type II, Osteoporosis Hematologic History: Reports: Anemia, Anticoagulation Therapy Dermatologic History: Reports: Psoriasis - Infectious Disease History Infectious Disease History: Reports: Chicken Pox, Measles Other Infectious Disease History: unknown - Past Surgical History HEENT Surgical History: Reports: Cataract Surgery Cardiovascular Surgical History: Reports: Pacer GI Surgical History: Reports: Appendectomy, Cholecystectomy, Hernia Repair/Other , Other (See Below) Musculoskeletal Surgical History: Reports: Knee Replacement, Other (See Below) Other Musculoskeletal Surgeries/Procedures:: current finger fx Social & Family History - Family History Family Medical History: Noncontributory Neurological: Reports: MS Endocrine/Metabolic: Reports: Diabetes, type II Oncologic: Reports: Bone - Tobacco Use Smoking Status *Q: Never Smoker Second Hand Smoke Exposure: No - Caffeine Use Caffeine Use: Reports: Coffee Other Caffeine Use: unknown Caffeine Use Comment: 8-10 cups/day - Recreational Drug Use Recreational Drug Use: No ED ROS GENERAL - Review of Systems Review Of Systems: See Below Constitutional: Denies: Fever, Chills HEENT: Reports: Other (Difficulty focusing) Respiratory: Denies: Shortness of Breath Cardiovascular: Denies: Chest Pain GI/Abdominal: Denies: Abdominal Pain Musculoskeletal: Reports: Other (Has a cast on her left arm from her recent fall ) Skin: Reports: Bruising (A small amount of bruising over the left forehead remains from her recent fall.) Neurological: Denies: Confusion ED EXAM, NEURO - Physical Exam Exam: See Below Exam Limited By: No Limitations General Appearance: Alert, No Apparent Distress Eye Exam: Bilateral Eye: EOMI Head Exam: Other (A small amount of bruising on the left forehead from her recent fall, no new findings) Neck: Supple Respiratory/Chest: No Respiratory Distress Neurological: Alert, Oriented x 3, Other (Neurologically she is at baseline) Psychiatric: Normal Affect, Normal Mood Course - Vital Signs Last Recorded V/S: Last Vital Signs Temp 96.4 F 06/24/18 16:23 Pulse 65 06/24/18 16:23 Resp 14 06/24/18 16:23 BP 157/79 H 06/24/18 16:23 Pulse Ox 96 06/24/18 16:22 - Re-Assessments/Exams Free Text/Narrative Re-Assessment/Exam: 06/24/18 16:41 No workup is indicated, patient is back to baseline and is DNR, comfort cares only so doesn't need an urgent evaluation as the symptoms seemed to have passed. The family is comfortable with the plan. Departure - Departure Time of Disposition: 16:56 Disposition: [facility] Condition: Good Clinical Impression: Change in mental status Qualifiers: Altered mental status type: somnolence Qualified Code(s): R40.0 - Somnolence - Discharge Information Instructions: Altered Mental Status Referrals: Riley Millan MD [Primary Care Provider] - Forms: ED Department Discharge Care Plan Goals: Return to normal cares, usual medications and activity as tolerated. Return if symptoms recur and are persistent and you feel more evaluation is needed.
== END 2018-06-24 16:55 ==
LOC: JP.ED 15:50
DX: R40.0 Somnolence (principal); I10 Essential (primary) hypertension; Z79.4 Long term (current) use of insulin; Z79.899 Other long term (current) drug therapy; Z88.2 Allergy status to sulfonamides; Z88.5 Allergy status to narcotic agent; Z91.09 Other allergy status, other than to drugs and biological substances; Z79.01 Long term (current) use of anticoagulants; Z88.8 Allergy status to other drugs, medicaments and biological substances
CPT/HCPCS: 99285

== ENCOUNTER 2018-06-29 06:26 | Emergency (ER) | payer MEDICARE, BC ==
[2018-06-29 06:37] VITALS: BP 132/82
--- NOTE | 2018-06-29 07:21 | EDM.PDOC ---
ED HPI GENERAL MEDICAL PROBLEM - General Chief Complaint: Wound Recheck Stated Complaint: CAST REPAIRED Time Seen by Provider: 06/29/18 07:16 Source of Information: Reports: Patient, Family, Old Records History Limitations: Reports: No Limitations - History of Present Illness INITIAL COMMENTS - FREE TEXT/NARRATIVE: 77 yo female with dementia recently fx's her L wrist and this is being managed with a splint secured with a 2 inch DEO. Her care givers brought her in this morning with L hand swelling that is worse than before. 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 (see below) (DEO removed and splint upon arrival in ER and before I saw patient.) - Related Data Allergies Allergy/AdvReac Type Severity Reaction Status Date / Time celecoxib [From Celebrex] Allergy Rash Verified 06/23/18 14:33 metformin HCl Allergy Cannot Verified 06/23/18 14:33 [From Glucophage] Remember paroxetine Allergy Cannot Verified 06/23/18 14:33 Remember prednisone Allergy Cannot Verified 06/23/18 14:33 Remember rofecoxib [From Vioxx] Allergy Rash Verified 06/23/18 14:33 Sulfa (Sulfonamide Allergy Cannot Verified 06/23/18 14:33 Antibiotics) Remember sulfasalazine Allergy Cannot Verified 06/23/18 14:33 [From Azulfidine] Remember codeine AdvReac Itching Verified 06/23/18 14:33 cyclobenzaprine AdvReac Itching Verified 06/23/18 14:33 environmental Allergy Cannot Uncoded 06/23/18 14:33 Remember Home Meds: Home Meds Furosemide [Lasix] 20 mg PO DAILY 08/22/13 [History] Multivitamin with Minerals [Multiple Vitamin] 1 tab PO DAILY 08/22/13 [History] Pramipexole [Mirapex] 0.5 mg PO BEDTIME 03/30/16 [History] Ranitidine [Zantac] 150 mg PO BID 03/30/16 [History] Metoprolol Tartrate [Lopressor] 25 mg PO BID 03/26/17 [History] atorvaSTATin [Lipitor] 40 mg PO BEDTIME 03/26/17 [History] FLUoxetine HCl [Fluoxetine HCl] 60 mg PO DAILY 10/19/17 [History] Gabapentin [Neurontin] 300 mg PO TID 10/19/17 [History] Insulin NPH Hum/Reg Insulin Hm [Novolin 70-30 100 Unit/ml Vial] 10 units SQ QPM 10/19/17 [History] Insulin NPH Hum/Reg Insulin Hm [Novolin 70-30 100 Unit/ml Vial] 23 units SQ ACBREAKFAST 10/19/17 [History] Meclizine [Antivert] 25 mg PO TID PRN 10/19/17 [History] Memantine HCl 10 mg PO DAILY 10/19/17 [History] Ursodiol 300 mg PO BID 10/19/17 [History] Acetaminophen [Tylenol Extra Strength] 1,000 mg PO TID #180 tablet 05/29/18 [Rx] Lidocaine 5% [Lidoderm 5%] 700 mg TOP DAILY #30 patch 05/29/18 [Rx] Warfarin [Coumadin] 2.5 mg PO ASDIRECTED 06/20/18 [History] traMADol [Ultram] 50 mg PO BID 06/20/18 [History] Past Medical History HEENT History: Reports: Cataract, Impaired Vision Cardiovascular History: Reports: High Cholesterol, Hypertension, Other (See Below) Other Cardiovascular History: bradycardia Respiratory History: Reports: Sleep Apnea Gastrointestinal History: Reports: Bowel Obstruction, Colon Polyp, Diverticulosis, Hemorrhoids Genitourinary History: Reports: UTI, Recurrent Other Genitourinary History: OAB 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 -07/2017 B anterior upper rib fractures. -SI joint dysfunction. - Degenerative Lumbar intervetrebral disc. -Balance d/o with recurrent falls ( 2018). -Polymyalgia rheumatica (PMR). -Arthritis noted to affect B feet, chronic back pain, knees (L TKA), L frozen shoulder per daughter Neurological History: Reports: Concussion, Neuropathy, Diabetic, TIA, Other ( See Below) Other Neuro History: dementia Psychiatric History: Reports: Anxiety, Dementia, Depression Endocrine/Metabolic History: Reports: Diabetes, Type II, Osteoporosis Hematologic History: Reports: Anemia, Anticoagulation Therapy Dermatologic History: Reports: Psoriasis - Infectious Disease History Infectious Disease History: Reports: Chicken Pox, Measles Other Infectious Disease History: unknown - Past Surgical History HEENT Surgical History: Reports: Cataract Surgery Cardiovascular Surgical History: Reports: Pacer GI Surgical History: Reports: Appendectomy, Cholecystectomy, Hernia Repair/Other , Other (See Below) Musculoskeletal Surgical History: Reports: Knee Replacement, Other (See Below) Other Musculoskeletal Surgeries/Procedures:: current finger fx Social & Family History - Family History Family Medical History: Noncontributory Neurological: Reports: MS Endocrine/Metabolic: Reports: Diabetes, type II Oncologic: Reports: Bone - Tobacco Use Smoking Status *Q: Never Smoker - Caffeine Use Caffeine Use: Reports: Coffee Other Caffeine Use: unknown Caffeine Use Comment: 8-10 cups/day - Recreational Drug Use Recreational Drug Use: No ED ROS GENERAL - Review of Systems Review Of Systems: See Below Constitutional: Reports: No Symptoms Musculoskeletal: Reports: Other (L hand/fingers swollen and ecchymotic) Skin: Reports: Bruising (fingers of L hand) Neurological: Reports: No Symptoms ED EXAM, SKIN/RASH Exam: See Below Exam Limited By: No Limitations General Appearance: Alert, WD/WN, No Apparent Distress Extremities: Other (L hand and fingers swollen) Neurological: Alert, CN II-XII Intact, No Motor/Sensory Deficits, Other ( dementia, cooperative) Psychiatric: Normal Affect, Normal Mood Skin: Warm, Dry, Intact, Ecchymosis (fingers and hand on left.) Location, Skin: Upper Extremity, Left Associated features: Tenderness, Swelling. No: Warmth, Inflammation Course - Vital Signs Text/Narrative:: hand elevated on a pillow for several minutes without the splint to allow some of the swelling to subside. Then the splint was reapplied with a 3 inch DEO replacing the 2 inch DEO. Last Recorded V/S: Last Vital Signs Temp 36.2 C 06/29/18 06:37 Pulse 65 06/29/18 06:37 Resp 18 06/29/18 06:37 BP 132/82 06/29/18 06:37 Pulse Ox 95 06/29/18 06:37 Departure - Departure Time of Disposition: 07:56 Disposition: Home, Self-Care 01 Condition: Good Clinical Impression: Aftercare for cast or splint check or change - Discharge Information *PRESCRIPTION DRUG MONITORING PROGRAM REVIEWED*: Not Applicable *COPY OF PRESCRIPTION DRUG MONITORING REPORT IN PATIENT KASSIDY: Not Applicable Referrals: PCP,None [Primary Care Provider] - Forms: ED Department Discharge Additional Instructions: Keep hand elevated. If fingers swell loosen the DEO wrap. Recheck with your caregiver per previously discussed plans. Return here as needed.
== END 2018-06-29 08:07 | disposition home or self-care (01) ==
LOC: JP.ED 06:26
DX: Z47.89 Encounter for other orthopedic aftercare (principal); E11.9 Type 2 diabetes mellitus without complications; Z79.4 Long term (current) use of insulin; Z79.01 Long term (current) use of anticoagulants; I10 Essential (primary) hypertension; E78.00 Pure hypercholesterolemia, unspecified; F41.9 Anxiety disorder, unspecified; F32.9 Major depressive disorder, single episode, unspecified; Z79.899 Other long term (current) drug therapy; Z88.1 Allergy status to other antibiotic agents; Z88.8 Allergy status to other drugs, medicaments and biological substances; Z88.2 Allergy status to sulfonamides
CPT/HCPCS: 99283